=== PATIENT | female | born 1965 ===

== ENCOUNTER 2017-02-09 08:58 | Emergency (ER) | payer SELFPAY ==
[2017-02-09 09:07] VITALS: RESP 16; TEMP 98.1; O2SAT 100
[2017-02-09 09:08] VITALS: BMI 31.6
--- NOTE | 2017-02-09 10:08 | ED PDOC ---
HPI: Female Pain Time Seen by Provider: 02/09/17 09:09 Chief Complaint (Nursing): Female Genitourinary Chief Complaint (Provider): Female Genitourinary History Per: Patient History/Exam Limitations: no limitations Onset/Duration Of Symptoms: Days Current Symptoms Are (Timing): Still Present Additional Complaint(s): 51 y/o female with a past medical history of hypertension who presents to the emergency department with prolonged menstrual period since 01/30/2017. Reports using up to 5 pads a day. States she was admitted within our facility in the past for hypertension and vaginal bleeding, completed ultrasounds with no significant results, and prescribed pills to stop the bleeding. Patient decided to came to the emergency department because [facility] appointment was made with Dr. Solis ([facility]) for March 08, 2017. Denies abdominal pain. Past Medical History Reviewed: Historical Data, Nursing Documentation, Vital Signs Vital Signs: Last Vital Signs Temp 98.1 F 02/09/17 09:06 Pulse 106 H 02/09/17 09:06 Resp 16 02/09/17 09:06 BP 158/87 H 02/09/17 09:06 Pulse Ox 100 02/09/17 09:06 - Medical History PMH: Anemia, HTN Denies: Chronic Kidney Disease - Surgical History Surgical History: - Family History Family History: States: Unknown Family Hx - Social History Current smoker - smoking cessation education provided: No Alcohol: None Drugs: Denies - Immunization History Hx Influenza Vaccination: Yes (not up to date) - Home Medications Home Medications: Ambulatory Orders Medication Instructions Recorded Ferrous Sulfate [Feosol] 325 mg PO BID #60 tab 08/16/14 amLODIPine [Norvasc] 5 mg PO DAILY #0 tab 08/16/14 Ferrous Sulfate [Feosol] 325 mg PO DAILY #30 tab 07/24/15 Naproxen [Naprosyn] 500 mg PO Q12H #20 tab 07/24/15 MedroxyPROGESTERone [Provera] 10 mg PO DAILY #10 tab 02/09/17 - Allergies Allergies/Adverse Reactions: Allergies Allergy/AdvReac Type Severity Reaction Status Date / Time No Known Allergies Allergy Verified 07/24/15 08:26 Review of Systems ROS Statement: Except As Marked, All Systems Reviewed And Found Negative Gastrointestinal: Negative for: Abdominal Pain Genitourinary Female: Positive for: Vaginal Bleeding Physical Exam - Reviewed Nursing Documentation Reviewed: Yes Vital Signs Reviewed: Yes - Physical Exam Appears: Positive for: Non-toxic, No Acute Distress Head Exam: Positive for: ATRAUMATIC, NORMAL INSPECTION, NORMOCEPHALIC Skin: Positive for: Normal Color, Warm, Dry Cardiovascular/Chest: Positive for: Regular Rate, Rhythm. Negative for: Murmur Respiratory: Positive for: Normal Breath Sounds. Negative for: Accessory Muscle Use, Respiratory Distress Gastrointestinal/Abdominal: Positive for: Normal Exam, Soft. Negative for: Tenderness Pelvic Exam: Positive for: Blood (Minimal dark blood involved). Negative for: Other (No other abnormalities ) Neurologic/Psych: Positive for: Alert, Oriented (x3) - Laboratory Results Result Diagrams: 02/09/17 10:00 02/09/17 10:00 - ECG O2 Sat by Pulse Oximetry: 100 (RA) Pulse Ox Interpretation: Normal - Physician Consult Information Physician Contacted: Grant Horton Outcome Of Conversation: Recommends Provera 10 mg qd X 10 days. Medical Decision Making Medical Decision Making: Time: 09:55 Initial Impression: Prolonged menstrual period Initial Plan: --Type and Screen --CMP --Urine Preg --CBC w/ diff --PTT & Prothrombin --Pelvis/Transvag US --Reevaluation Time: 1029 --Crossmatch --Type and Screen --Administer Blood products Time: 1259 --US FINDINGS: UTERUS: Measures 12.3 x 5.9 x 5.1 cm. There is grossly normal uterine echogenicity appreciated. There is a small posterior uterine fibroid noted measuring 1.3 x 1.3 x 1.5 centimeters. ENDOMETRIUM: Measures 20 mm in diameter. Endometrial complex is thickened with areas of increased vascularity identified. This will require further clinical follow up in a patient of this age. No appreciable focal endometrial complex mass. CERVIX: No cervical abnormality identified. RIGHT OVARY: Measures 2.2 x 2.1 x 1.6 cm. No solid mass. Normal flow. Right ovary is only well seen transabdominally. LEFT OVARY: Measures 4.4 x 3.2 x 2.6 cm. There is a 2.8 x 4.2 x 2.6 left ovarian hypoechoic simple cyst occupying a large portion of the right ovary. Normal flow. FREE FLUID: No significant free fluid noted. OTHER FINDINGS: None. IMPRESSION: Thickened endometrial complex with areas of increased vascularity. No focal endometrial complex mass. This may reflect hyperplasia but will require further clinical follow-up. In addition there is a hypoechoic simple appearing left ovarian cyst. Follow-up ultrasound of this would also be suggested. Time: 1310 --Patient is signing against medical advice (AMA) after refusing IV transfusion. --Counseling was provided to patient that signing out AMA before physician determines diagnosis or recommends discharge is considered high-risk especially with symptoms patient presented to the emergency room with. --Patient is medically stable and will sign out AMA. --Rx for Provera 10 mg was prescribed and advised to follow up with Dr. Joana Solis MD. Clinical Impression: DUB (Dysfunctional uterine bleeding) Scribe Attestation: Documented by Jasmine Hernandes, acting as a scribe for Shira Phan MD. Provider Scribe Attestation: All medical record entries made by the Scribe were at my direction and personally dictated by me. I have reviewed the chart and agree that the record accurately reflects my personal performance of the history, physical exam, medical decision making, and the department course for this patient. I have also personally directed, reviewed, and agree with the discharge instructions and disposition. Disposition - Clinical Impression Clinical Impression: DUB (dysfunctional uterine bleeding) - Disposition Referrals: Joana Solis MD [Staff Provider] - Disposition: Against Medical Advice Disposition Time: 13:10 Condition: STABLE Prescriptions: MedroxyPROGESTERone [Provera] 10 mg PO DAILY #10 tab Instructions: Dysfunctional Uterine Bleeding (ED) Forms: [employer] (Azeri) Print Language: MAURITIAN
[2017-02-09 10:14] LABS: BASO # 0.1 K/uL (0.0-0.2); BASO % 1.4 % (0.0-2.0); EOS # 0.1 K/uL (0.0-0.7); EOS % 1.2 % (0.0-4.0); LYMPH # 1.1 K/uL (1.0-4.3); LYMPH % 25.4 % (20.0-40.0); MEAN CELL VOLUME 62.4 fl (81.0-99.0); MEAN CORPUSCULAR HEMOGLOBIN 17.3 pg (27.0-31.0); MEAN CORPUSCULAR HGB CONC 27.8 g/dL (33.0-37.0); MEAN PLATELET VOLUME 8.5 fl (7.2-11.7); MONO # 0.3 K/uL (0.0-0.8); MONO % 6.8 % (0.0-10.0); NEUT # 2.9 K/uL (1.8-7.0); NEUT % 65.2 % (50.0-75.0); RED CELL DISTRIBUTION WIDTH 24.5 % (11.5-14.5); WHITE BLOOD COUNT 4.5 K/uL (4.8-10.8)
[2017-02-09 10:22] LABS: ALB/GLOB RATIO 1.3 (1.0-2.1); ALKALINE PHOSPHATASE 95 U/L (38-126); ALT/SGPT 29 U/L (9-52); AST/SGOT 33 U/L (14-36); BILIRUBIN,TOTAL 0.1 mg/dl (0.2-1.3); BLOOD UREA NITROGEN 16 mg/dl (7-17); CALCIUM 9.7 mg/dL (8.4-10.2); CARBON DIOXIDE 22 mmol/L (22-30); CHLORIDE 106 mmol/L (98-107); GFR AFRICAN-AMERICAN > 60; GLUCOSE,RANDOM 116 mg/dL (65-105); POTASSIUM 3.8 MMOL/L (3.6-5.0); SODIUM 141 mmol/l (132-148); TOTAL PROTEIN 7.5 G/DL (6.3-8.2)
[2017-02-09 10:27] LABS: PARTIAL THROMBOPLASTIN TIME 23.1 Seconds (25.6-37.1)
--- NOTE | 2017-02-09 13:00 | US ---
HISTORY: Irregular vag bleeding COMPARISON: December 02, 2015 TECHNIQUE: Real-time transabdominal and transvaginal ultrasound examination of the pelvis was performed. FINDINGS: UTERUS: Measures 12.3 x 5.9 x 5.1 cm. There is grossly normal uterine echogenicity appreciated. There is a small posterior uterine fibroid noted measuring 1.3 x 1.3 x 1.5 centimeters. ENDOMETRIUM: Measures 20 mm in diameter. Endometrial complex is thickened with areas of increased vascularity identified. This will require further clinical follow up in a patient of this age. No appreciable focal endometrial complex mass. CERVIX: No cervical abnormality identified. RIGHT OVARY: Measures 2.2 x 2.1 x 1.6 cm. No solid mass. Normal flow. Right ovary is only well seen transabdominally. LEFT OVARY: Measures 4.4 x 3.2 x 2.6 cm. There is a 2.8 x 4.2 x 2.6 left ovarian hypoechoic simple cyst occupying a large portion of the right ovary. Normal flow. FREE FLUID: No significant free fluid noted. OTHER FINDINGS: None. IMPRESSION: Thickened endometrial complex with areas of increased vascularity. No focal endometrial complex mass. This may reflect hyperplasia but will require further clinical follow-up. In addition there is a hypoechoic simple appearing left ovarian cyst. Follow-up ultrasound of this would also be suggested.
[2017-02-09 13:37] VITALS: BP 140/87; PULSE 90
== END 2017-02-09 13:37 | disposition left against medical advice (07) ==
LOC: H.ER 08:58
DX: N93.8 Other specified abnormal uterine and vaginal bleeding (principal); D25.9 Leiomyoma of uterus, unspecified

== ENCOUNTER 2017-02-25 16:21 | Inpatient (IN) | payer SELFPAY ==
[2017-02-25 16:21] VITALS: BMI 31.6
[2017-02-25] MEDS ORDERED: Sodium Chloride 0.9% 1,000 ML IV STA (16:34)
--- NOTE | 2017-02-25 16:38 | ED PDOC ---
HPI: Female Pain Time Seen by Provider: 02/25/17 16:26 Chief Complaint (Nursing): Abnormal Labs Chief Complaint (Provider): Vaginal bleeding History Per: Patient History/Exam Limitations: no limitations Onset/Duration Of Symptoms: Days (xSeveral months) Current Symptoms Are (Timing): Still Present Additional Complaint(s): Siena Saxena is a 51 year old female with a past medical history of anemia and hypertension who presents to the ED complaining of vaginal bleeding ongoing for several months. Patient was seen here on 02/09/17 at which time her hemoglobin was 6.1, and ultrasound showed thickened endometrial complex with no mass. She refused blood transfusion and left against medical advice at that time. Denies any dizziness, nausea, vomiting, diarrhea, weakness , numbness, headache, chest pain or shortness of breath. Patient was seen at the clinic earlier today and referred to the ED due to low hemoglobin. PMD: Raffy Gregory MD Past Medical History Reviewed: Historical Data, Nursing Documentation, Vital Signs Vital Signs: Last Vital Signs Temp 98.0 F 02/25/17 16:24 Pulse 107 H 02/25/17 16:24 Resp 16 02/25/17 16:24 BP 155/88 H 02/25/17 16:24 Pulse Ox 100 02/25/17 16:24 - Medical History PMH: Anemia, HTN Denies: Chronic Kidney Disease - Surgical History Surgical History: - Family History Family History: States: Unknown Family Hx - Social History Current smoker - smoking cessation education provided: No Alcohol: None Drugs: Denies - Immunization History Hx Influenza Vaccination: Yes (not up to date) - Home Medications Home Medications: Ambulatory Orders Medication Instructions Recorded Ferrous Sulfate [Feosol] 325 mg PO BID #60 tab 08/16/14 amLODIPine [Norvasc] 5 mg PO DAILY #0 tab 08/16/14 Ferrous Sulfate [Feosol] 325 mg PO DAILY #30 tab 07/24/15 Naproxen [Naprosyn] 500 mg PO Q12H #20 tab 07/24/15 MedroxyPROGESTERone [Provera] 10 mg PO DAILY #10 tab 02/09/17 - Allergies Allergies/Adverse Reactions: Allergies Allergy/AdvReac Type Severity Reaction Status Date / Time No Known Allergies Allergy Verified 02/25/17 16:24 Review of Systems Constitutional: Negative for: Fever, Chills Cardiovascular: Negative for: Chest Pain Respiratory: Negative for: Shortness of Breath Gastrointestinal: Negative for: Nausea, Vomiting, Diarrhea Genitourinary Female: Positive for: Vaginal Bleeding Musculoskeletal: Negative for: Back Pain, Leg Pain Neurological: Negative for: Weakness, Numbness, Headache, Dizziness Physical Exam - Reviewed Nursing Documentation Reviewed: Yes Vital Signs Reviewed: Yes - Physical Exam Appears: Positive for: Uncomfortable Head Exam: Positive for: ATRAUMATIC, NORMAL INSPECTION, NORMOCEPHALIC Skin: Positive for: Normal Color, Warm, Dry Eye Exam: Positive for: Normal appearance (Right eye), EOMI, PERRL, Other ( Patient cannot see out of left eye due to prior injury) ENT: Positive for: Normal ENT Inspection. Negative for: Nasal Congestion, Pharyngeal Erythema Neck: Positive for: Normal, Painless ROM, Supple Cardiovascular/Chest: Positive for: Regular Rate, Rhythm. Negative for: Murmur Respiratory: Positive for: Normal Breath Sounds. Negative for: Respiratory Distress Gastrointestinal/Abdominal: Positive for: Normal Exam, Bowel Sounds, Soft. Negative for: Tenderness Back: Positive for: Normal Inspection. Negative for: L CVA Tenderness, R CVA Tenderness, Vertebral Tenderness Extremity: Positive for: Normal ROM. Negative for: Pedal Edema, Deformity Neurologic/Psych: Positive for: Alert, Oriented. Negative for: Motor/Sensory Deficits - Laboratory Results Result Diagrams: 02/25/17 17:17 02/25/17 17:06 Interpretation Of Abn Labs: 4.6 hg - ECG ECG: Positive for: Interpreted By Me, Viewed By Me ECG Rhythm: Positive for: Normal QRS, Normal ST Segment, Sinus Rhythm O2 Sat by Pulse Oximetry: 100 (RA) Pulse Ox Interpretation: Normal - Progress ED Course And Treament: 1754: Stable. AAOx3. Pain free. Will need admit for transfusion. Hg lower in [address] Bustamante and Dr. Decker. Will admit ICU. OBGYN saw pt. last visit 2 weeks ago and put on oral hormone pills. - Critical Care Total Time (In Min): 30 Documented Critical Care: Time excludes all time spent performint seperately billable procedures Medical Decision Making Medical Decision Making: Reviewed US Abdomen/Pelvis/Transvag Taken 02/09 IMPRESSION: Thickened endometrial complex with areas of increased vascularity. No focal endometrial complex mass. This may reflect hyperplasia but will require further clinical follow-up. In addition there is a hypoechoic simple appearing left ovarian cyst. Follow-up ultrasound of this would also be suggested. Time: 16:33 Initial Plan: --ABO/RH Type --Packed Cells leukoreduced --Type and Screen --CMP --Troponin I --Urine --Urine drip --CBC --Partial thromboplastin time --Prothrombin time --Sodium Chloride 0.9% 1,000 ml IV --Administer blood products --Pending reevaluation Scribe Attestation: Documented by Kraig Arce, acting as a scribe for Vicente Suazo MD Provider Scribe Attestation: All medical record entries made by the Scribe were at my direction and personally dictated by me. I have reviewed the chart and agree that the record accurately reflects my personal performance of the history, physical exam, medical decision making, and the department course for this patient. I have also personally directed, reviewed, and agree with the discharge instructions and disposition. Disposition - Clinical Impression Clinical Impression: Vaginal bleeding, Anemia - Patient ED Disposition Is Patient to be Admitted: Yes Counseled Patient/Family Regarding: Studies Performed, Diagnosis - Disposition Disposition Time: 17:55 Condition: FAIR - Pt Status Changed To: Hospital Disposition Of: Inpatient - Admit Certification Admit to Inpatient:: After my assessment, the patient will require hospitalization for at least two midnights. This is because of the severity of symptoms shown, intensity of services needed, and/or the medical risk in this patient being treated as an outpatient. - POA Present On Arrival: None
[2017-02-25 17:31] LABS: BASO # 0.1 K/uL (0.0-0.2); BASO % 0.9 % (0.0-2.0); EOS % 0.1 % (0.0-4.0); HEMATOCRIT 15.6 % (34.0-47.0); LYMPH # 1.4 K/uL (1.0-4.3); LYMPH % 14.4 % (20.0-40.0); MEAN CELL VOLUME 60.3 fl (81.0-99.0); MEAN CORPUSCULAR HEMOGLOBIN 17.8 pg (27.0-31.0); MEAN CORPUSCULAR HGB CONC 29.6 g/dL (33.0-37.0); MEAN PLATELET VOLUME 8.8 fl (7.2-11.7); MONO # 0.7 K/uL (0.0-0.8); MONO % 7.4 % (0.0-10.0); NEUT # 7.7 K/uL (1.8-7.0); NEUT % 77.2 % (50.0-75.0); NRBC % 1.8 % (0.0-0.0); RED CELL DISTRIBUTION WIDTH 23.7 % (11.5-14.5)
[2017-02-25 17:37] LABS: ALB/GLOB RATIO 1.3 (1.0-2.1); ALKALINE PHOSPHATASE 93 U/L (38-126); ALT/SGPT 30 U/L (9-52); AST/SGOT 29 U/L (14-36); BILIRUBIN,TOTAL 0.2 mg/dl (0.2-1.3); BLOOD UREA NITROGEN 11 mg/dl (7-17); CALCIUM 9.7 mg/dL (8.4-10.2); CARBON DIOXIDE 22 mmol/L (22-30); CHLORIDE 103 mmol/L (98-107); GFR AFRICAN-AMERICAN > 60; GLUCOSE,RANDOM 120 mg/dL (65-105); POTASSIUM 3.8 MMOL/L (3.6-5.0); SODIUM 136 mmol/l (132-148); TOTAL PROTEIN 7.5 G/DL (6.3-8.2)
[2017-02-25 18:10] LABS: PARTIAL THROMBOPLASTIN TIME 22.6 Seconds (25.6-37.1)
--- NOTE | 2017-02-25 18:31 | CP.PCM.HP ---
History of Present Illness - History of Present Illness History of Present Illness: 51yo F with PMHx HTN, chronic anemia admitted for anemia. LMP 01/29/17, heavy menstrual bleeding, 5-6 pads daily, has been occuring x3 years, previously 3-4 pads daily. Has tried provera recently, last taken 1-2 weeks ago, completed provera daily x1 week and bleeding decreased shortly afterwards, but increased after provera was completed. Denies PMHx/FHx fibroid, cervical/ovarian/breast cancer. 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 - Present on Admission Any Indicators Present on Admission: No Review of Systems - Review of Systems All systems: reviewed and no additional remarkable complaints except - Reproductive: Female Reproductive:Female: Heavy Menses Past Patient History - Infectious Disease Hx of Infectious Diseases: None - Tetanus Immunizations Tetanus Immunization: Unknown - Past Medical History & Family History Past Medical History?: No - Past Social History Alcohol: None Drugs: Denies - CARDIAC Hx Hypertension: Yes - PULMONARY Hx Respiratory Disorders: No - NEUROLOGICAL Hx Neurological Disorder: No - HEENT Other/Comment: BLIND LEFT EYE. 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) - GASTROINTESTINAL Hx Gastrointestinal Disorders: No - GENITOURINARY/GYNECOLOGICAL Hx Genitourinary Disorders: Yes (Vaginal Bleeding) - PSYCHIATRIC Hx Psychophysiologic Disorder: No Hx Substance Use: No - SURGICAL HISTORY Hx Section: Yes - ANESTHESIA Hx Anesthesia: Yes Hx Anesthesia Reactions: No Hx Malignant Hyperthermia: No Meds Allergies/Adverse Reactions: Allergies Allergy/AdvReac Type Severity Reaction Status Date / Time No Known Allergies Allergy Verified 02/25/17 16:24 Physical Exam - Constitutional Appears: Non-toxic, No Acute Distress - Head Exam Head Exam: ATRAUMATIC, NORMOCEPHALIC - Eye Exam Eye Exam: Normal appearance - ENT Exam ENT Exam: Mucous Membranes Moist - Neck Exam Neck exam: Positive for: Full Rom, Normal Inspection - Respiratory Exam Respiratory Exam: Clear to Auscultation Bilateral, NORMAL BREATHING PATTERN. absent: Wheezes - Cardiovascular Exam Cardiovascular Exam: REGULAR RHYTHM. absent: Systolic Murmur - GI/Abdominal Exam GI & Abdominal Exam: Normal Bowel Sounds. absent: Tenderness - Extremities Exam Extremities exam: Positive for: normal capillary refill, normal inspection. Negative for: pedal edema - Back Exam Back exam: NORMAL INSPECTION. absent: vertebral tenderness - Neurological Exam Neurological exam: Alert, Oriented x3 - Skin Skin Exam: Dry, Warm Results - Vital Signs Recent Vital Signs: Last Vital Signs Temp 98.0 F 02/25/17 16:24 Pulse 107 H 02/25/17 16:24 Resp 16 02/25/17 16:24 BP 155/88 H 02/25/17 16:24 Pulse Ox 100 02/25/17 17:56 - Labs Result Diagrams: 02/25/17 17:17 02/25/17 17:06 Labs: Laboratory Results - last 24 hr 02/25/17 02/25/17 02/25/17 17:06 17:06 17:17 WBC 10.0 D RBC 2.59 L Hgb 4.6 L* Hct 15.6 L MCV 60.3 L D MCH 17.8 L MCHC 29.6 L RDW 23.7 H Plt Count 284 MPV 8.8 Neut % (Auto) 77.2 H Lymph % (Auto) 14.4 L [place] % (Auto) 7.4 Eos % (Auto) 0.1 Baso % (Auto) 0.9 Neut # 7.7 H Lymph # 1.4 Sol[place] # 0.7 Eos # 0.0 Baso # 0.1 PT INR APTT Sodium 136 Potassium 3.8 Chloride 103 Carbon Dioxide 22 Anion Gap 15 BUN 11 Creatinine 0.6 L Est GFR ( Amer) > 60 Est GFR (Non-Af Amer) > 60 Random Glucose 120 H Calcium 9.7 Total Bilirubin 0.2 AST 29 ALT 30 Alkaline Phosphatase 93 Troponin I < 0.0120 Total Protein 7.5 Albumin 4.3 Globulin 3.3 Albumin/Globulin Ratio 1.3 Blood Type O POSITIVE Antibody Screen Negative Crossmatch See Detail BBK History Checked Patient has bt 02/25/17 17:17 WBC RBC Hgb Hct MCV MCH MCHC RDW Plt Count MPV Neut % (Auto) Lymph % (Auto) Sol[place] % (Auto) Eos % (Auto) Baso % (Auto) Neut # Lymph # Sol[place] # Eos # Baso # PT 12.4 INR 1.1 APTT 22.6 L Sodium Potassium Chloride Carbon Dioxide Anion Gap BUN Creatinine Est GFR ( Amer) Est GFR (Non-Af Amer) Random Glucose Calcium Total Bilirubin AST ALT Alkaline Phosphatase Troponin I Total Protein Albumin Globulin Albumin/Globulin Ratio Blood Type Antibody Screen Crossmatch BBK History Checked Assessment & Plan - Assessment and Plan (Free Text) Assessment: 51yo F with PMHx HTN, chronic anemia admitted for anemia. 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 This is because of the severity of symptoms shown, intensity of services needed, and/or the medical risk in this patient being treated as an outpatient. - . Bed Request Type: Intensive Care Admitting Physician: Deborah Dillon
[2017-02-25 21:55] LABS: MAGNESIUM 2.2 MG/DL (1.6-2.3); PHOSPHOROUS 2.7 mg/dl (2.5-4.5)
[2017-02-25] MEDS ORDERED: Chlorhexidine Gluconate 1 APPL/PKT TP ONE (22:31)
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
[2017-02-26 00:13] VITALS: O2SAT 100
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
[2017-02-26 05:42] LABS: HEMATOCRIT 21.3 % (34.0-47.0); MEAN CELL VOLUME 67.2 fl (81.0-99.0); MEAN CORPUSCULAR HEMOGLOBIN 21.2 pg (27.0-31.0); MEAN CORPUSCULAR HGB CONC 31.6 g/dL (33.0-37.0); RED CELL DISTRIBUTION WIDTH 27.3 % (11.5-14.5); WHITE BLOOD COUNT 8.4 K/uL (4.8-10.8)
[2017-02-26 05:50] LABS: ALB/GLOB RATIO 1.3 (1.0-2.1); ALKALINE PHOSPHATASE 87 U/L (38-126); ALT/SGPT 30 U/L (9-52); AST/SGOT 27 U/L (14-36); BILIRUBIN,TOTAL 0.6 mg/dl (0.2-1.3); BLOOD UREA NITROGEN 11 mg/dl (7-17); CALCIUM 9.4 mg/dL (8.4-10.2); CARBON DIOXIDE 23 mmol/L (22-30); CHLORIDE 109 mmol/L (98-107); GFR AFRICAN-AMERICAN > 60; GLUCOSE,RANDOM 105 mg/dL (65-105); MAGNESIUM 2.2 MG/DL (1.6-2.3); POTASSIUM 4.3 MMOL/L (3.6-5.0); SODIUM 139 mmol/l (132-148); TOTAL PROTEIN 6.6 G/DL (6.3-8.2)
--- NOTE | 2017-02-26 08:28 | CP.PCM.PN ---
Subjective - Date & Time of Evaluation Date of Evaluation: 02/26/17 Time of Evaluation: 08:13 - Subjective Subjective: 51 y/o female seen and evaluated at bedside this morning. Patient is resting comfortably in her bed and denies of any acute overnight events. Patient is AAOx3 and in NAD. Patient states that she is feeling a lot better since she came in to the ED yesterday. Patient state that she is still bleeding from the vagina little bit but denies of any clots. Patient denies of having hx of bleeding disorder or any family history of cancer in the family. Patient reports that she has been 4 time and she has had 3 normal vaginal delivery and one . Patient denied of any complications with her previous delivery. Patient states that her last period was on 01/30 and reports that her periods last for about 3 weeks at a time. Patient states that she has monthly regular periods and has to have 3-4 pads changes daily while on her period. Patient states that she was given provera on her last visit to the ED which helped her with the bleeding a little bit. Patient denied of following up with an PRACTICE PHYSICIAN in the past. Patient denies of any recent F/N/V/C/shortness of breath/chest pain/headache/dizziness. Patient denies of any other complains at this time. Objective - Vital Signs/Intake and Output Vital Signs (last 24 hours): Temp Pulse Resp BP Pulse Ox 98.8 F 79 20 124/65 100 02/26/17 04:00 02/26/17 06:00 02/26/17 06:00 02/26/17 06:00 02/26/17 06:00 Intake and Output: 02/26/17 02/26/17 06:59 18:59 Intake Total 890 Output Total 900 Balance -10 - Medications Medications: Current Medications Acetaminophen (Tylenol 325mg Tab) 650 mg PO Q6 PRN PRN Reason: Pain, Mild (1-3) Last Admin: 02/25/17 19:59 Dose: 650 mg Amlodipine Besylate (Norvasc) 5 mg PO DAILY [facility] Cyanocobalamin (Vitamin B12 1000 Mcg/Ml Inj) 1,000 mcg IM DAILY [facility] Iron Sucrose 200 mg/ Sodium (Chloride) 110 mls @ 110 mls/hr IVPB DAILY [facility] Metoprolol Succinate (Toprol Xl) 25 mg PO DAILY [facility] Multivit/Folic Acid/Iron () 1 tab PO DAILY [facility] - Labs Labs: 02/26/17 04:20 02/26/17 04:20 PT 12.4 Seconds (9.8-13.1) 02/25/17 17:17 INR 1.1 (0.9-1.2) 02/25/17 17:17 APTT 22.6 Seconds (25.6-37.1) L 02/25/17 17:17 - Constitutional Appears: Well, Non-toxic, No Acute Distress - Head Exam Head Exam: NORMAL INSPECTION - Eye Exam Eye Exam: Normal appearance - ENT Exam ENT Exam: Mucous Membranes Moist, Normal Exam - Neck Exam Neck Exam: Full ROM, Normal Inspection - Respiratory Exam Respiratory Exam: Clear to Ausculation Bilateral, NORMAL BREATHING PATTERN. absent: Rales, Rhonchi, Wheezes, Respiratory Distress - Cardiovascular Exam Cardiovascular Exam: Tachycardia, REGULAR RHYTHM, +S1, +S2. absent: Diastolic murmur, Murmur - GI/Abdominal Exam GI & Abdominal Exam: Soft, Normal Bowel Sounds. absent: Tenderness, Diminished Bowel Sounds, Hyperactive Bowel Sounds - Rectal Exam Rectal Exam: Deferred - Extremities Exam Extremities Exam: Full ROM, Normal Inspection. absent: Calf Tenderness, Joint Swelling, Pedal Edema, Tenderness - Back Exam Back Exam: Full ROM, NORMAL INSPECTION. absent: tenderness - Neurological Exam Neurological Exam: Alert, Awake, Oriented x3 - Psychiatric Exam Psychiatric exam: Normal Affect, Normal Mood - Skin Skin Exam: Intact, Normal Color, Warm Assessment and Plan - Assessment and Plan (Free Text) Assessment: 51 y/o female with PMHx HTN, chronic anemia admitted for symptomatic anemia and active vaginal bleeding Plan: 1). Anemia - Pelvis US (02/12): Thickened endometrial complex with areas of increased vascularity. No focal endometrial complex mass. Reflects hyperplasia. Simple appearing left ovarian cyst noted which requires a follow up US - Pelvis US (12/12): Endometrium measures 5 mm in diameter. Unremarkable. Mildly enlarged uterus - Received 2 units of pRBC overnight - H&H 4.6/15.6 on admission to 6.7/21.3 this morning - transfuse 2 more units of pRBC, IV venofer - Blood workup - Iron, TIBC, vWF, FSH, LH, prolactin ordered - Monitor labs - cont cardiac monitoring - PRACTICE PHYSICIAN on board, input appreciated - F/u US to measure endometrial stripe, appointment in [facility] clinic for endometrial biopsy. If biopsy is benign, recommend Mirena IUD 2). HTN - Amlodipine 5 mg PO qd - Metoprolol 25 mg PO qd 3). Tachycardia - EKG normal sinus tachycardia - Metoprolol 4). DVT ppx - SCDs - no pharmalogical agents given anemia
[2017-02-26] MEDS: Metoprolol Succinate 25 mg XL Tab PO SCH (08:47)
[2017-02-26] MEDS: Prenatal Multivit/Folic Acid/Iron Tab PO SCH (08:48)
--- NOTE | 2017-02-26 09:54 | CP.CCUPN ---
<Harrison Chaidez - Last Filed: 02/26/17 11:49> CCU Subjective - Physician Review Subjective (Free Text): 02/26/17 09:48 Patient seen and examined at bedside this morning. Patient NAD and laying in bed comfortably. Patient states that vaginal bleed has decreased and reports no other bleeding, denies hemoptysis, hematuria, hematochezia, or melena. Patient tolerating PO and voiding freely. Patient complains only of right foot pain w/ movement. Patient denies headaches, chest pain, SOB, abdominal pain, nausea, vomiting, or fever. Critical Care Time Spent (in minutes): 35 CCU Objective - Vital Signs / Intake & Output Vital Signs (Last 4 hours): Vital Signs Temp Pulse Resp BP Pulse Ox 02/26/17 08:48 98 H 150/65 02/26/17 08:47 98 H 150/65 02/26/17 08:00 99.2 F 82 18 131/82 100 02/26/17 06:00 79 20 124/65 100 Intake and Output (Last 8hrs): Intake & Output 02/25/17 02/26/17 02/26/17 22:59 06:59 14:59 Intake Total 890 Output Total 900 Balance -10 Weight 169 lb Intake: Oral 240 Blood Product 650 Output: Urine 900 Urine, Voided 900 Other: # Voids Urine, Voided 1 - Physical Exam Head: Positive for: Atraumatic, Normocephalic. Negative for: Tenderness Pupils: Positive for: PERRL (right eye normal, left eye damaged from previous injury) Extroacular Muscles: Positive for: EOMI Conjunctiva: Positive for: Normal Neck: Positive for: Normal Range of Motion Respiratory/Chest: Positive for: Clear to Auscultation, Good Air Exchange. Negative for: Respiratory Distress, Accessory Muscle Use, Wheezes, Decreased Breath Sounds, Rales, Rhonchi Cardiovascular: Positive for: Regular Rate and Rhythm, Normal S1, S2. Negative for: Murmurs, Tachycardic Abdomen: Positive for: Normal Bowel Sounds. Negative for: Tenderness, Distention, Peritoneal Signs Back: Positive for: Normal Inspection Upper Extremity: Negative for: Cyanosis, Edema, Tenderness Lower Extremity: Negative for: Edema, CALF TENDERNESS, Swelling Neurological: Positive for: GCS=15, CN II-XII Intact, Speech Normal Skin: Positive for: Warm, Dry, Pale Psychiatric: Positive for: Alert, Oriented x 3 - Medications Active Medications: Active Medications Generic Name Dose Route Start Last Admin Trade Name Stephanie PRN Reason Stop Dose Admin Acetaminophen 650 mg 02/25/17 19:46 02/25/17 19:59 Tylenol 325mg Tab PO 650 mg Q6 PRN Administration Pain, Mild (1-3) Amlodipine Besylate 5 mg 02/26/17 09:00 02/26/17 08:48 Norvasc PO 5 mg DAILY RALPH Administration Cyanocobalamin 1,000 mcg 02/26/17 09:00 02/26/17 08:48 Vitamin B12 1000 Mcg/Ml Inj IM 1,000 mcg DAILY RALPH Administration Iron Sucrose 200 mg/ Sodium 110 mls @ 110 mls/hr 02/26/17 09:00 02/26/17 08: 49 Chloride IVPB 110 mls/hr DAILY RALPH Administration Metoprolol Succinate 25 mg 02/26/17 09:00 02/26/17 08:47 Toprol Xl PO 25 mg DAILY RALPH Administration Multivit/Folic Acid/Iron 1 tab 02/26/17 09:00 02/26/17 08:48 PO 1 tab DAILY RALPH Administration - Patient Studies Lab Studies: Lab Studies 02/26/17 02/26/17 02/25/17 Range/Units 04:20 04:20 22:40 WBC 8.4 (4.8-10.8) K/uL RBC 3.17 L (3.80-5.20) Mil/uL Hgb 6.7 L D (12.0-16.0) g/dL Hct 21.3 L (34.0-47.0) % MCV 67.2 L D (81.0-99.0) fl MCH 21.2 L (27.0-31.0) pg MCHC 31.6 L (33.0-37.0) g/dL RDW 27.3 H (11.5-14.5) % Plt Count 243 (130-400) K/uL MPV (7.2-11.7) fl Neut % (Auto) (50.0-75.0) % Lymph % (Auto) (20.0-40.0) % Stewart % (Auto) (0.0-10.0) % Eos % (Auto) (0.0-4.0) % Baso % (Auto) (0.0-2.0) % Neut # (1.8-7.0) K/uL Lymph # (1.0-4.3) K/uL Stewart # (0.0-0.8) K/uL Eos # (0.0-0.7) K/uL Baso # (0.0-0.2) K/uL Retic Count 4.3 H D PT (9.8-13.1) Seconds INR (0.9-1.2) APTT (25.6-37.1) Seconds Sodium 139 (132-148) mmol/l Potassium 4.3 (3.6-5.0) MMOL/L Chloride 109 H (98-107) mmol/L Carbon Dioxide 23 (22-30) mmol/L Anion Gap 11 (10-20) BUN 11 (7-17) mg/dl Creatinine 0.7 (0.7-1.2) mg/dL Est GFR ( Amer) > 60 Est GFR (Non-Af Amer) > 60 Random Glucose 105 (65-105) mg/dL Calcium 9.4 (8.4-10.2) mg/dL Phosphorus 3.0 (2.5-4.5) mg/dl Magnesium 2.2 (1.6-2.3) MG/DL Total Bilirubin 0.6 (0.2-1.3) mg/dl AST 27 (14-36) U/L ALT 30 (9-52) U/L Alkaline Phosphatase 87 (38-126) U/L Lactate Dehydrogenase (313-618) U/L Troponin I (0.00-0.120) ng/mL Total Protein 6.6 (6.3-8.2) G/DL Albumin 3.7 (3.5-5.0) g/dL Globulin 2.9 (2.2-3.9) gm/dL Albumin/Globulin Ratio 1.3 (1.0-2.1) Blood Type Antibody Screen Crossmatch BBK History Checked 02/25/17 02/25/17 02/25/17 Range/Units 21:58 20:58 17:17 WBC (4.8-10.8) K/uL RBC (3.80-5.20) Mil/uL Hgb (12.0-16.0) g/dL Hct (34.0-47.0) % MCV (81.0-99.0) fl MCH (27.0-31.0) pg MCHC (33.0-37.0) g/dL RDW (11.5-14.5) % Plt Count (130-400) K/uL MPV (7.2-11.7) fl Neut % (Auto) (50.0-75.0) % Lymph % (Auto) (20.0-40.0) % Stewart % (Auto) (0.0-10.0) % Eos % (Auto) (0.0-4.0) % Baso % (Auto) (0.0-2.0) % Neut # (1.8-7.0) K/uL Lymph # (1.0-4.3) K/uL Stewart # (0.0-0.8) K/uL Eos # (0.0-0.7) K/uL Baso # (0.0-0.2) K/uL Retic Count Cancelled PT 12.4 (9.8-13.1) Seconds INR 1.1 (0.9-1.2) APTT 22.6 L (25.6-37.1) Seconds Sodium (132-148) mmol/l Potassium (3.6-5.0) MMOL/L Chloride (98-107) mmol/L Carbon Dioxide (22-30) mmol/L Anion Gap (10-20) BUN (7-17) mg/dl Creatinine (0.7-1.2) mg/dL Est GFR ( Amer) Est GFR (Non-Af Amer) Random Glucose (65-105) mg/dL Calcium (8.4-10.2) mg/dL Phosphorus 2.7 (2.5-4.5) mg/dl Magnesium 2.2 (1.6-2.3) MG/DL Total Bilirubin (0.2-1.3) mg/dl AST (14-36) U/L ALT (9-52) U/L Alkaline Phosphatase (38-126) U/L Lactate Dehydrogenase 302 L (313-618) U/L Troponin I (0.00-0.120) ng/mL Total Protein (6.3-8.2) G/DL Albumin (3.5-5.0) g/dL Globulin (2.2-3.9) gm/dL Albumin/Globulin Ratio (1.0-2.1) Blood Type Antibody Screen Crossmatch BBK History Checked 02/25/17 02/25/17 02/25/17 Range/Units 17:17 17:06 17:06 WBC 10.0 D (4.8-10.8) K/uL RBC 2.59 L (3.80-5.20) Mil/uL Hgb 4.6 L* (12.0-16.0) g/dL Hct 15.6 L (34.0-47.0) % MCV 60.3 L D (81.0-99.0) fl MCH 17.8 L (27.0-31.0) pg MCHC 29.6 L (33.0-37.0) g/dL RDW 23.7 H (11.5-14.5) % Plt Count 284 (130-400) K/uL MPV 8.8 (7.2-11.7) fl Neut % (Auto) 77.2 H (50.0-75.0) % Lymph % (Auto) 14.4 L (20.0-40.0) % Stewart % (Auto) 7.4 (0.0-10.0) % Eos % (Auto) 0.1 (0.0-4.0) % Baso % (Auto) 0.9 (0.0-2.0) % Neut # 7.7 H (1.8-7.0) K/uL Lymph # 1.4 (1.0-4.3) K/uL Stewart # 0.7 (0.0-0.8) K/uL Eos # 0.0 (0.0-0.7) K/uL Baso # 0.1 (0.0-0.2) K/uL Retic Count PT (9.8-13.1) Seconds INR (0.9-1.2) APTT (25.6-37.1) Seconds Sodium 136 (132-148) mmol/l Potassium 3.8 (3.6-5.0) MMOL/L Chloride 103 (98-107) mmol/L Carbon Dioxide 22 (22-30) mmol/L Anion Gap 15 (10-20) BUN 11 (7-17) mg/dl Creatinine 0.6 L (0.7-1.2) mg/dL Est GFR ( Amer) > 60 Est GFR (Non-Af Amer) > 60 Random Glucose 120 H (65-105) mg/dL Calcium 9.7 (8.4-10.2) mg/dL Phosphorus (2.5-4.5) mg/dl Magnesium (1.6-2.3) MG/DL Total Bilirubin 0.2 (0.2-1.3) mg/dl AST 29 (14-36) U/L ALT 30 (9-52) U/L Alkaline Phosphatase 93 (38-126) U/L Lactate Dehydrogenase (313-618) U/L Troponin I < 0.0120 (0.00-0.120) ng/mL Total Protein 7.5 (6.3-8.2) G/DL Albumin 4.3 (3.5-5.0) g/dL Globulin 3.3 (2.2-3.9) gm/dL Albumin/Globulin Ratio 1.3 (1.0-2.1) Blood Type O POSITIVE Antibody Screen Negative Crossmatch See Detail BBK History Checked Patient has bt Laboratory Results - last 24 hr 02/25/17 02/25/17 02/25/17 17:06 17:06 17:17 WBC 10.0 D RBC 2.59 L Hgb 4.6 L* Hct 15.6 L MCV 60.3 L D MCH 17.8 L MCHC 29.6 L RDW 23.7 H Plt Count 284 MPV 8.8 Neut % (Auto) 77.2 H Lymph % (Auto) 14.4 L Stewart % (Auto) 7.4 Eos % (Auto) 0.1 Baso % (Auto) 0.9 Neut # 7.7 H Lymph # 1.4 Stewart # 0.7 Eos # 0.0 Baso # 0.1 Retic Count PT INR APTT Sodium 136 Potassium 3.8 Chloride 103 Carbon Dioxide 22 Anion Gap 15 BUN 11 Creatinine 0.6 L Est GFR ( Amer) > 60 Est GFR (Non-Af Amer) > 60 Random Glucose 120 H Calcium 9.7 Phosphorus Magnesium Total Bilirubin 0.2 AST 29 ALT 30 Alkaline Phosphatase 93 Lactate Dehydrogenase Troponin I < 0.0120 Total Protein 7.5 Albumin 4.3 Globulin 3.3 Albumin/Globulin Ratio 1.3 Blood Type O POSITIVE Antibody Screen Negative Crossmatch See Detail BBK History Checked Patient has bt 02/25/17 02/25/17 02/25/17 17:17 20:58 21:58 WBC RBC Hgb Hct MCV MCH MCHC RDW Plt Count MPV Neut % (Auto) Lymph % (Auto) Stewart % (Auto) Eos % (Auto) Baso % (Auto) Neut # Lymph # Stewart # Eos # Baso # Retic Count Cancelled PT 12.4 INR 1.1 APTT 22.6 L Sodium Potassium Chloride Carbon Dioxide Anion Gap BUN Creatinine Est GFR ( Amer) Est GFR (Non-Af Amer) Random Glucose Calcium Phosphorus 2.7 Magnesium 2.2 Total Bilirubin AST ALT Alkaline Phosphatase Lactate Dehydrogenase 302 L Troponin I Total Protein Albumin Globulin Albumin/Globulin Ratio Blood Type Antibody Screen Crossmatch BBK History Checked 02/25/17 02/26/17 02/26/17 22:40 04:20 04:20 WBC 8.4 RBC 3.17 L Hgb 6.7 L D Hct 21.3 L MCV 67.2 L D MCH 21.2 L MCHC 31.6 L RDW 27.3 H Plt Count 243 MPV Neut % (Auto) Lymph % (Auto) Stewart % (Auto) Eos % (Auto) Baso % (Auto) Neut # Lymph # Stewart # Eos # Baso # Retic Count 4.3 H D PT INR APTT Sodium 139 Potassium 4.3 Chloride 109 H Carbon Dioxide 23 Anion Gap 11 BUN 11 Creatinine 0.7 Est GFR ( Amer) > 60 Est GFR (Non-Af Amer) > 60 Random Glucose 105 Calcium 9.4 Phosphorus 3.0 Magnesium 2.2 Total Bilirubin 0.6 AST 27 ALT 30 Alkaline Phosphatase 87 Lactate Dehydrogenase Troponin I Total Protein 6.6 Albumin 3.7 Globulin 2.9 Albumin/Globulin Ratio 1.3 Blood Type Antibody Screen Crossmatch BBK History Checked Review of Systems - Review of Systems All systems: reviewed and no additional remarkable complaints except - Constitutional Constitutional: absent: Fever, Chills - EENT Eyes: absent: Change in Vision - Cardiovascular Cardiovascular: absent: Chest Pain, Dyspnea, Edema, Leg Edema, Palpitations - Respiratory Respiratory: absent: Cough, Dyspnea, Hemoptysis, Wheezing, Stridor - Gastrointestinal Gastrointestinal: absent: Abdominal Pain, Diarrhea, Hematochezia, Melena, Nausea , Vomiting - Genitourinary Genitourinary: absent: Dysuria, Hematuria - Integumentary Integumentary: absent: Rash - Neurological Neurological: absent: Dizziness, Headaches, Syncope Critical Care Progress Note - Nutrition Nutrition: Nutrition Category Date Time Status Regular Diet [DIET] Diets 02/26/17 Breakfast Active Assessment/Plan - Assessment and Plan (Free Text) Assessment: 51 y/o woman w/ pmh of HTN and chronic anemia presented to ED w/ symptomatic anemia. Patient in ICU for active vaginal bleeding and symptomatic anemia w/ Hb of 4.6 Plan: Anemia secondary to abnormal uterine bleeding - presented to ED w/ tachycardia, hypotension, and dyspnea - admission Hb 4.6 - s/p 2 units PRBCs overnight - repeat CBC this AM, Hb 6.7 - currently asymptomatic and reports reduced vaginal bleed - Pelvis US (02/09/2017): Thickened endometrial complex with areas of increased vascularity. No focal endometrial complex mass. Reflects hyperplasia. Simple appearing left ovarian cyst noted which requires a follow up US - Pelvis US (12/02/15): Endometrium measures 5 mm in diameter. Unremarkable. Mildly enlarged uterus - transfuse 2 more units of pRBC - c/w IV venofer 200 mg IV @ 110mL/hr - c/w vitamin B12 1000 mcg IM daily - c/w multivitamin 1 tab PO daily - Follow up: Iron, TIBC, vWF, FSH, LH, prolactin - monitor vitals - [employer] consult, Dr. Bailon, recommendations appreciated - F/u US to measure endometrial stripe, appointment in [facility] for endometrial biopsy. If biopsy is benign, recommend Mirena IUD HTN - Amlodipine 5 mg PO daily - Metoprolol 25 mg PO daily - continue to monitor Prophylactic measures - SCDs - no pharmacological agents due to anemia Dispo: - stable transfer to [facility] <Srikanth Beltran - Last Filed: 02/26/17 14:09> CCU Objective - Vital Signs / Intake & Output Vital Signs (Last 4 hours): Vital Signs Temp Pulse Resp BP Pulse Ox 02/26/17 14:00 84 20 123/82 100 02/26/17 13:00 84 21 124/67 100 02/26/17 12:00 100.1 F H 87 42 H 132/77 100 Intake and Output (Last 8hrs): Intake & Output 02/25/17 02/26/17 02/26/17 22:59 06:59 14:59 Intake Total 890 880 Output Total 900 Balance -10 880 Weight 169 lb Intake: Intake, Piggyback 100 Oral 240 480 Blood Product 650 300 Output: Urine 900 Urine, Voided 900 Other: # Voids Urine, Voided 1 - Medications Active Medications: Active Medications Generic Name Dose Route Start Last Admin Trade Name Freq PRN Reason Stop Dose Admin Acetaminophen 650 mg 02/25/17 19:46 02/25/17 19:59 Tylenol 325mg Tab PO 650 mg Q6 PRN Administration Pain, Mild (1-3) Amlodipine Besylate 5 mg 02/26/17 09:00 02/26/17 08:48 Norvasc PO 5 mg DAILY RALPH Administration Cyanocobalamin 1,000 mcg 02/26/17 09:00 02/26/17 08:48 Vitamin B12 1000 Mcg/Ml Inj IM 1,000 mcg DAILY RALPH Administration Iron Sucrose 200 mg/ Sodium 110 mls @ 110 mls/hr 02/26/17 09:00 02/26/17 08: 49 Chloride IVPB 110 mls/hr DAILY RALPH Administration Metoprolol Succinate 25 mg 02/26/17 09:00 02/26/17 08:47 Toprol Xl PO 25 mg DAILY RALPH Administration Multivit/Folic Acid/Iron 1 tab 02/26/17 09:00 02/26/17 08:48 PO 1 tab DAILY RALPH Administration - Patient Studies Lab Studies: Lab Studies 02/26/17 02/26/17 02/26/17 Range/Units 08:30 04:20 04:20 WBC 8.4 (4.8-10.8) K/uL RBC 3.17 L (3.80-5.20) Mil/uL Hgb 6.7 L D (12.0-16.0) g/dL Hct 21.3 L (34.0-47.0) % MCV 67.2 L D (81.0-99.0) fl MCH 21.2 L (27.0-31.0) pg MCHC 31.6 L (33.0-37.0) g/dL RDW 27.3 H (11.5-14.5) % Plt Count 243 (130-400) K/uL MPV (7.2-11.7) fl Neut % (Auto) (50.0-75.0) % Lymph % (Auto) (20.0-40.0) % Stewart % (Auto) (0.0-10.0) % Eos % (Auto) (0.0-4.0) % Baso % (Auto) (0.0-2.0) % Neut # (1.8-7.0) K/uL Lymph # (1.0-4.3) K/uL Stewart # (0.0-0.8) K/uL Eos # (0.0-0.7) K/uL Baso # (0.0-0.2) K/uL Retic Count PT (9.8-13.1) Seconds INR (0.9-1.2) APTT (25.6-37.1) Seconds Sodium 139 (132-148) mmol/l Potassium 4.3 (3.6-5.0) MMOL/L Chloride 109 H (98-107) mmol/L Carbon Dioxide 23 (22-30) mmol/L Anion Gap 11 (10-20) BUN 11 (7-17) mg/dl Creatinine 0.7 (0.7-1.2) mg/dL Est GFR ( Amer) > 60 Est GFR (Non-Af Amer) > 60 Random Glucose 105 (65-105) mg/dL Calcium 9.4 (8.4-10.2) mg/dL Phosphorus 3.0 (2.5-4.5) mg/dl Magnesium 2.2 (1.6-2.3) MG/DL Iron 22 L (37-170) ug/dL TIBC 381 (250-450) ug/dL % Saturation 6 L (20-55) % Total Bilirubin 0.6 (0.2-1.3) mg/dl AST 27 (14-36) U/L ALT 30 (9-52) U/L Alkaline Phosphatase 87 (38-126) U/L Lactate Dehydrogenase (313-618) U/L Troponin I (0.00-0.120) ng/mL Total Protein 6.6 (6.3-8.2) G/DL Albumin 3.7 (3.5-5.0) g/dL Globulin 2.9 (2.2-3.9) gm/dL Albumin/Globulin Ratio 1.3 (1.0-2.1) Blood Type Antibody Screen Crossmatch BBK History Checked 02/25/17 02/25/17 02/25/17 Range/Units 22:40 21:58 20:58 WBC (4.8-10.8) K/uL RBC (3.80-5.20) Mil/uL Hgb (12.0-16.0) g/dL Hct (34.0-47.0) % MCV (81.0-99.0) fl MCH (27.0-31.0) pg MCHC (33.0-37.0) g/dL RDW (11.5-14.5) % Plt Count (130-400) K/uL MPV (7.2-11.7) fl Neut % (Auto) (50.0-75.0) % Lymph % (Auto) (20.0-40.0) % Stewart % (Auto) (0.0-10.0) % Eos % (Auto) (0.0-4.0) % Baso % (Auto) (0.0-2.0) % Neut # (1.8-7.0) K/uL Lymph # (1.0-4.3) K/uL Stewart # (0.0-0.8) K/uL Eos # (0.0-0.7) K/uL Baso # (0.0-0.2) K/uL Retic Count 4.3 H D Cancelled PT (9.8-13.1) Seconds INR (0.9-1.2) APTT (25.6-37.1) Seconds Sodium (132-148) mmol/l Potassium (3.6-5.0) MMOL/L Chloride (98-107) mmol/L Carbon Dioxide (22-30) mmol/L Anion Gap (10-20) BUN (7-17) mg/dl Creatinine (0.7-1.2) mg/dL Est GFR ( Amer) Est GFR (Non-Af Amer) Random Glucose (65-105) mg/dL Calcium (8.4-10.2) mg/dL Phosphorus 2.7 (2.5-4.5) mg/dl Magnesium 2.2 (1.6-2.3) MG/DL Iron (37-170) ug/dL TIBC (250-450) ug/dL % Saturation (20-55) % Total Bilirubin (0.2-1.3) mg/dl AST (14-36) U/L ALT (9-52) U/L Alkaline Phosphatase (38-126) U/L Lactate Dehydrogenase 302 L (313-618) U/L Troponin I (0.00-0.120) ng/mL Total Protein (6.3-8.2) G/DL Albumin (3.5-5.0) g/dL Globulin (2.2-3.9) gm/dL Albumin/Globulin Ratio (1.0-2.1) Blood Type Antibody Screen Crossmatch BBK History Checked 02/25/17 02/25/17 02/25/17 Range/Units 17:17 17:17 17:06 WBC 10.0 D (4.8-10.8) K/uL RBC 2.59 L (3.80-5.20) Mil/uL Hgb 4.6 L* (12.0-16.0) g/dL Hct 15.6 L (34.0-47.0) % MCV 60.3 L D (81.0-99.0) fl MCH 17.8 L (27.0-31.0) pg MCHC 29.6 L (33.0-37.0) g/dL RDW 23.7 H (11.5-14.5) % Plt Count 284 (130-400) K/uL MPV 8.8 (7.2-11.7) fl Neut % (Auto) 77.2 H (50.0-75.0) % Lymph % (Auto) 14.4 L (20.0-40.0) % Stewart % (Auto) 7.4 (0.0-10.0) % Eos % (Auto) 0.1 (0.0-4.0) % Baso % (Auto) 0.9 (0.0-2.0) % Neut # 7.7 H (1.8-7.0) K/uL Lymph # 1.4 (1.0-4.3) K/uL Stewart # 0.7 (0.0-0.8) K/uL Eos # 0.0 (0.0-0.7) K/uL Baso # 0.1 (0.0-0.2) K/uL Retic Count PT 12.4 (9.8-13.1) Seconds INR 1.1 (0.9-1.2) APTT 22.6 L (25.6-37.1) Seconds Sodium 136 (132-148) mmol/l Potassium 3.8 (3.6-5.0) MMOL/L Chloride 103 (98-107) mmol/L Carbon Dioxide 22 (22-30) mmol/L Anion Gap 15 (10-20) BUN 11 (7-17) mg/dl Creatinine 0.6 L (0.7-1.2) mg/dL Est GFR ( Amer) > 60 Est GFR (Non-Af Amer) > 60 Random Glucose 120 H (65-105) mg/dL Calcium 9.7 (8.4-10.2) mg/dL Phosphorus (2.5-4.5) mg/dl Magnesium (1.6-2.3) MG/DL Iron (37-170) ug/dL TIBC (250-450) ug/dL % Saturation (20-55) % Total Bilirubin 0.2 (0.2-1.3) mg/dl AST 29 (14-36) U/L ALT 30 (9-52) U/L Alkaline Phosphatase 93 (38-126) U/L Lactate Dehydrogenase (313-618) U/L Troponin I < 0.0120 (0.00-0.120) ng/mL Total Protein 7.5 (6.3-8.2) G/DL Albumin 4.3 (3.5-5.0) g/dL Globulin 3.3 (2.2-3.9) gm/dL Albumin/Globulin Ratio 1.3 (1.0-2.1) Blood Type Antibody Screen Crossmatch BBK History Checked 02/25/17 Range/Units 17:06 WBC (4.8-10.8) K/uL RBC (3.80-5.20) Mil/uL Hgb (12.0-16.0) g/dL Hct (34.0-47.0) % MCV (81.0-99.0) fl MCH (27.0-31.0) pg MCHC (33.0-37.0) g/dL RDW (11.5-14.5) % Plt Count (130-400) K/uL MPV (7.2-11.7) fl Neut % (Auto) (50.0-75.0) % Lymph % (Auto) (20.0-40.0) % Stewart % (Auto) (0.0-10.0) % Eos % (Auto) (0.0-4.0) % Baso % (Auto) (0.0-2.0) % Neut # (1.8-7.0) K/uL Lymph # (1.0-4.3) K/uL Stewart # (0.0-0.8) K/uL Eos # (0.0-0.7) K/uL Baso # (0.0-0.2) K/uL Retic Count PT (9.8-13.1) Seconds INR (0.9-1.2) APTT (25.6-37.1) Seconds Sodium (132-148) mmol/l Potassium (3.6-5.0) MMOL/L Chloride (98-107) mmol/L Carbon Dioxide (22-30) mmol/L Anion Gap (10-20) BUN (7-17) mg/dl Creatinine (0.7-1.2) mg/dL Est GFR ( Amer) Est GFR (Non-Af Amer) Random Glucose (65-105) mg/dL Calcium (8.4-10.2) mg/dL Phosphorus (2.5-4.5) mg/dl Magnesium (1.6-2.3) MG/DL Iron (37-170) ug/dL TIBC (250-450) ug/dL % Saturation (20-55) % Total Bilirubin (0.2-1.3) mg/dl AST (14-36) U/L ALT (9-52) U/L Alkaline Phosphatase (38-126) U/L Lactate Dehydrogenase (313-618) U/L Troponin I (0.00-0.120) ng/mL Total Protein (6.3-8.2) G/DL Albumin (3.5-5.0) g/dL Globulin (2.2-3.9) gm/dL Albumin/Globulin Ratio (1.0-2.1) Blood Type O POSITIVE Antibody Screen Negative Crossmatch See Detail BBK History Checked Patient has bt Laboratory Results - last 24 hr 02/25/17 02/25/17 02/25/17 17:06 17:06 17:17 WBC 10.0 D RBC 2.59 L Hgb 4.6 L* Hct 15.6 L MCV 60.3 L D MCH 17.8 L MCHC 29.6 L RDW 23.7 H Plt Count 284 MPV 8.8 Neut % (Auto) 77.2 H Lymph % (Auto) 14.4 L Stewart % (Auto) 7.4 Eos % (Auto) 0.1 Baso % (Auto) 0.9 Neut # 7.7 H Lymph # 1.4 Stewart # 0.7 Eos # 0.0 Baso # 0.1 Retic Count PT INR APTT Sodium 136 Potassium 3.8 Chloride 103 Carbon Dioxide 22 Anion Gap 15 BUN 11 Creatinine 0.6 L Est GFR ( Amer) > 60 Est GFR (Non-Af Amer) > 60 Random Glucose 120 H Calcium 9.7 Phosphorus Magnesium Iron TIBC % Saturation Total Bilirubin 0.2 AST 29 ALT 30 Alkaline Phosphatase 93 Lactate Dehydrogenase Troponin I < 0.0120 Total Protein 7.5 Albumin 4.3 Globulin 3.3 Albumin/Globulin Ratio 1.3 Blood Type O POSITIVE Antibody Screen Negative Crossmatch See Detail BBK History Checked Patient has bt 02/25/17 02/25/17 02/25/17 17:17 20:58 21:58 WBC RBC Hgb Hct MCV MCH MCHC RDW Plt Count MPV Neut % (Auto) Lymph % (Auto) Stewart % (Auto) Eos % (Auto) Baso % (Auto) Neut # Lymph # Stewart # Eos # Baso # Retic Count Cancelled PT 12.4 INR 1.1 APTT 22.6 L Sodium Potassium Chloride Carbon Dioxide Anion Gap BUN Creatinine Est GFR ( Amer) Est GFR (Non-Af Amer) Random Glucose Calcium Phosphorus 2.7 Magnesium 2.2 Iron TIBC % Saturation Total Bilirubin AST ALT Alkaline Phosphatase Lactate Dehydrogenase 302 L Troponin I Total Protein Albumin Globulin Albumin/Globulin Ratio Blood Type Antibody Screen Crossmatch BBK History Checked 02/25/17 02/26/17 02/26/17 22:40 04:20 04:20 WBC 8.4 RBC 3.17 L Hgb 6.7 L D Hct 21.3 L MCV 67.2 L D MCH 21.2 L MCHC 31.6 L RDW 27.3 H Plt Count 243 MPV Neut % (Auto) Lymph % (Auto) Stewart % (Auto) Eos % (Auto) Baso % (Auto) Neut # Lymph # Stewart # Eos # Baso # Retic Count 4.3 H D PT INR APTT Sodium 139 Potassium 4.3 Chloride 109 H Carbon Dioxide 23 Anion Gap 11 BUN 11 Creatinine 0.7 Est GFR ( Amer) > 60 Est GFR (Non-Af Amer) > 60 Random Glucose 105 Calcium 9.4 Phosphorus 3.0 Magnesium 2.2 Iron TIBC % Saturation Total Bilirubin 0.6 AST 27 ALT 30 Alkaline Phosphatase 87 Lactate Dehydrogenase Troponin I Total Protein 6.6 Albumin 3.7 Globulin 2.9 Albumin/Globulin Ratio 1.3 Blood Type Antibody Screen Crossmatch BBK History Checked 02/26/17 08:30 WBC RBC Hgb Hct MCV MCH MCHC RDW Plt Count MPV Neut % (Auto) Lymph % (Auto) Stewart % (Auto) Eos % (Auto) Baso % (Auto) Neut # Lymph # Stewart # Eos # Baso # Retic Count PT INR APTT Sodium Potassium Chloride Carbon Dioxide Anion Gap BUN Creatinine Est GFR ( Amer) Est GFR (Non-Af Amer) Random Glucose Calcium Phosphorus Magnesium Iron 22 L TIBC 381 % Saturation 6 L Total Bilirubin AST ALT Alkaline Phosphatase Lactate Dehydrogenase Troponin I Total Protein Albumin Globulin Albumin/Globulin Ratio Blood Type Antibody Screen Crossmatch BBK History Checked Critical Care Progress Note - Nutrition Nutrition: Nutrition Category Date Time Status Regular Diet [DIET] Diets 02/26/17 Breakfast Active Attending/Attestation - Attestation I have personally seen and examined this patient.: Yes I have fully participated in the care of the patient.: Yes I have reviewed all pertinent clinical information: Yes Notes (Text): 02/26/17 14:05 Today: Sunday, February 26, 2017 The patient was Seen/interviewed and examined by me at the bedside during ICU round, Medical records reviewed and Management issues were discussed and formulated with the house staff. I have reviewed all the relevant clinical, laboratory, hemodynamic, radiographic data and medications Pain issues, skin care, head of the bed elevation, glycemic control were addressed. I concur with resident's assessment and plan of care as transcribed in Dr. Chaidez note. This morning he feels well and is hemodynamically stable, S/P 2U packed RBC transfusion Denies any chest pain or SOB and the plan is to transfer out of the ICU.
[2017-02-26 10:44] LABS: IRON 22 ug/dL (37-170)
[2017-02-27 06:48] LABS: BASO # 0.1 K/uL (0.0-0.2); BASO % 1.1 % (0.0-2.0); EOS # 0.4 K/uL (0.0-0.7); EOS % 3.9 % (0.0-4.0); HEMATOCRIT 27.2 % (34.0-47.0); LYMPH # 1.7 K/uL (1.0-4.3); LYMPH % 18.2 % (20.0-40.0); MEAN CELL VOLUME 71.9 fl (81.0-99.0); MEAN CORPUSCULAR HEMOGLOBIN 24.5 pg (27.0-31.0); MEAN CORPUSCULAR HGB CONC 34.1 g/dL (33.0-37.0); MEAN PLATELET VOLUME 8.7 fl (7.2-11.7); MONO # 0.7 K/uL (0.0-0.8); MONO % 7.9 % (0.0-10.0); NEUT # 6.4 K/uL (1.8-7.0); NEUT % 68.9 % (50.0-75.0); NRBC % 0.2 % (0.0-0.0); RED CELL DISTRIBUTION WIDTH 29.1 % (11.5-14.5); WHITE BLOOD COUNT 9.3 K/uL (4.8-10.8)
[2017-02-27 07:41] VITALS: BP 121/73; RESP 20; TEMP 98.4
[2017-02-27 07:46] LABS: FSH 6.9 mIU/mL
[2017-02-27] MEDS: Prenatal Multivit/Folic Acid/Iron Tab PO SCH (09:17)
[2017-02-27] MEDS: Metoprolol Succinate 25 mg XL Tab PO SCH (09:17)
[2017-02-27 09:18] VITALS: PULSE 70
--- NOTE | 2017-02-27 11:33 | RAD ---
PROCEDURE: Right Foot Radiographs. HISTORY: H/O fall 4 days ago, R foot pain and swelling COMPARISON: None. FINDINGS: BONES: Bone alignment and mineralization are normal. There is no acute displaced fracture or bone destruction. JOINTS: The joint spaces are preserved. SOFT TISSUES: There is severe dorsal soft tissue swelling in the midfoot. There is an apparent 2 mm calcific density in the dorsal soft tissues. OTHER FINDINGS: None. IMPRESSION: No acute fracture or dislocation. Severe dorsal soft tissue swelling. Apparent 2 mm calcific density in the dorsal soft tissues of the midfoot could represent artifact or foreign body.
--- NOTE | 2017-02-27 11:54 | CP.PCM.DIS ---
Provider - Provider Date of Admission: 02/25/17 17:45 Attending physician: Deborah Dillon MD Time Spent in preparation of Discharge (in minutes): 30 Diagnosis - Discharge Diagnosis (1) Anemia Status: Acute (2) DUB (dysfunctional uterine bleeding) Status: Acute Hospital Course - Lab Results Lab Results: Most Recent Lab Values WBC 9.3 K/uL (4.8-10.8) 02/27/17 05:20 RBC 3.78 Mil/uL (3.80-5.20) L 02/27/17 05:20 Hgb 9.3 g/dL (12.0-16.0) L D 02/27/17 05:20 Hct 27.2 % (34.0-47.0) L 02/27/17 05:20 MCV 71.9 fl (81.0-99.0) L D 02/27/17 05:20 MCH 24.5 pg (27.0-31.0) L 02/27/17 05:20 MCHC 34.1 g/dL (33.0-37.0) 02/27/17 05:20 RDW 29.1 % (11.5-14.5) H 02/27/17 05:20 Plt Count 228 K/uL (130-400) 02/27/17 05:20 MPV 8.7 fl (7.2-11.7) 02/27/17 05:20 Neut % (Auto) 68.9 % (50.0-75.0) 02/27/17 05:20 Lymph % (Auto) 18.2 % (20.0-40.0) L 02/27/17 05:20 Bath % (Auto) 7.9 % (0.0-10.0) 02/27/17 05:20 Eos % (Auto) 3.9 % (0.0-4.0) 02/27/17 05:20 Baso % (Auto) 1.1 % (0.0-2.0) 02/27/17 05:20 Neut # 6.4 K/uL (1.8-7.0) 02/27/17 05:20 Lymph # 1.7 K/uL (1.0-4.3) 02/27/17 05:20 Bath # 0.7 K/uL (0.0-0.8) 02/27/17 05:20 Eos # 0.4 K/uL (0.0-0.7) 02/27/17 05:20 Baso # 0.1 K/uL (0.0-0.2) 02/27/17 05:20 Retic Count 4.3 % (0.5-1.5) H D 02/25/17 22:40 Haptoglobin 167 mg/dL (43-212) 02/25/17 20:58 PT 12.4 Seconds (9.8-13.1) 02/25/17 17:17 INR 1.1 (0.9-1.2) 02/25/17 17:17 APTT 22.6 Seconds (25.6-37.1) L 02/25/17 17:17 Sodium 139 mmol/l (132-148) 02/26/17 04:20 Potassium 4.3 MMOL/L (3.6-5.0) 02/26/17 04:20 Chloride 109 mmol/L (98-107) H 02/26/17 04:20 Carbon Dioxide 23 mmol/L (22-30) 02/26/17 04:20 Anion Gap 11 (10-20) 02/26/17 04:20 BUN 11 mg/dl (7-17) 02/26/17 04:20 Creatinine 0.7 mg/dL (0.7-1.2) 02/26/17 04:20 Est GFR ( Amer) > 60 02/26/17 04:20 Est GFR (Non-Af Amer) > 60 02/26/17 04:20 Random Glucose 105 mg/dL (65-105) 02/26/17 04:20 Calcium 9.4 mg/dL (8.4-10.2) 02/26/17 04:20 Phosphorus 3.0 mg/dl (2.5-4.5) 02/26/17 04:20 Magnesium 2.2 MG/DL (1.6-2.3) 02/26/17 04:20 Iron 22 ug/dL (37-170) L 02/26/17 08:30 TIBC 381 ug/dL (250-450) 02/26/17 08:30 % Saturation 6 % (20-55) L 02/26/17 08:30 Total Bilirubin 0.6 mg/dl (0.2-1.3) 02/26/17 04:20 AST 27 U/L (14-36) 02/26/17 04:20 ALT 30 U/L (9-52) 02/26/17 04:20 Alkaline Phosphatase 87 U/L (38-126) 02/26/17 04:20 Lactate Dehydrogenase 302 U/L (313-618) L 02/25/17 20:58 Troponin I < 0.0120 ng/mL (0.00-0.120) 02/25/17 17:06 Total Protein 6.6 G/DL (6.3-8.2) 02/26/17 04:20 Albumin 3.7 g/dL (3.5-5.0) 02/26/17 04:20 Globulin 2.9 gm/dL (2.2-3.9) 02/26/17 04:20 Albumin/Globulin Ratio 1.3 (1.0-2.1) 02/26/17 04:20 FSH 3rd Generation 6.9 mIU/mL 02/27/17 05:20 Luteinizing Hormone 4.6 mIU/ml 02/27/17 05:20 Blood Type O POSITIVE 02/25/17 17:06 Antibody Screen Negative 02/25/17 17:06 Crossmatch See Detail 02/25/17 17:06 BBK History Checked Patient has bt 02/25/17 17:06 - Hospital Course Hospital Course: 51 yo F with PMHx HTN and chronic anemia admitted for symptomatic anemia ( Hgb 4.6 on admission) secondary to heavy menstrual bleeding after Provera withdrawal. Patient transfused with leuk-reduced RBC 4 units, also venofer 200 mg x1. Bleeding probably secondary to endometrial thickening noted on previous US. Patient evaluated for OBGYN and outpatient followup recommended for endometrial biopsy. Also reports mild pain and swelling in R foot due to a fall 4 days ago, foot x ray negative for fracture. Improved condition at discharge ( Hgb 9.3) patient discharged home safely with followup instructions/ visits on with Dr Hall at [facility]. Home medications: Lisinopril 10mg PO daily. Ferrous sulfate 325 mg PO BID. Discharge Exam - Head Exam Head Exam: NORMAL INSPECTION - Neck Exam Neck exam: Normal Inspection - Respiratory Exam Respiratory Exam: Clear to PA & Lateral. absent: Rales, Rhonchi, Wheezes - Cardiovascular Exam Cardiovascular Exam: REGULAR RHYTHM, +S1, +S2 - GI/Abdominal Exam GI & Abdominal Exam: Normal Bowel Sounds, Soft. absent: Tenderness - Neurological Exam Neurological exam: Alert, CN II-XII Intact, Oriented x3 - Skin Skin Exam: Dry, Intact, Warm Discharge Plan - Follow Up Plan Condition: FAIR Disposition: HOME/ ROUTINE Instructions: Dysfunctional Uterine Bleeding (DC), Anemia (DC) Additional Instructions: Follow up with PMD in 2-3 days. ER precaution given appointment with dr hall at [facility] on 03/19/17 Referrals: Jennifer Hall MD [Staff Provider] -
== END 2017-02-27 15:03 | disposition home or self-care (01) | DRG 395 ==
LOC: H.ER 16:21 → H.ERHOLD 17:45 → H.ICU/CCU 18:42 → H.MEDSURG1 02-26 16:45
PROVIDERS: ADMIT Family Medicine Geriatric Medicine; ATTEND Family Medicine Geriatric Medicine
PROC: 30233N1 Transfusion of Nonautologous Red Blood Cells into Peripheral Vein, Percutaneous Approach (ICD-10-PCS; principal; 2017-02-25)
DX: D50.0 Iron deficiency anemia secondary to blood loss (chronic) (principal); I10 Essential (primary) hypertension; N93.9 Abnormal uterine and vaginal bleeding, unspecified; M79.671 Pain in right foot; T38.5X5A Adverse effect of other estrogens and progestogens, initial encounter; N92.0 Excessive and frequent menstruation with regular cycle; N83.292 Other ovarian cyst, left side; H54.40 Blindness, one eye, unspecified eye

== ENCOUNTER 2017-05-15 09:31 | Emergency (ER) | payer SELFPAY ==
[2017-05-15 09:32] VITALS: BMI 31.6
[2017-05-15 09:39] VITALS: O2SAT 100
[2017-05-15] MEDS ORDERED: Sodium Chloride 0.9% 1,000 ML IV STA (10:32)
--- NOTE | 2017-05-15 10:55 | ED PDOC ---
Syncope/Near Syncope/Dizziness Time Seen by Provider: 05/15/17 10:15 Chief Complaint (Nursing): Dizziness/Lightheaded Chief Complaint (Provider): Dizziness History Per: Patient History/Exam Limitations: no limitations Onset/Duration Of Symptoms: Days Current Symptoms Are (Timing): Still Present Activity At Onset Of Symptoms: Sitting, Standing Seizure Or Post-ictal Symptoms: None Additional Complaint(s): 52 yo female with history of HTN and anemia presents with dizziness for a few days. Pt states last time she felt similar symptoms she was anemic. Pt states she was seen by [facility] for heavy vaginal bleeding and put on provera. Pt states this has not helped and the symptoms began after starting the medication. Pt states today was worse and she felt so dizzy she fell but did without LOC or injury. Past Medical History Reviewed: Historical Data, Nursing Documentation, Vital Signs Vital Signs: Last Vital Signs Temp 98.3 F 05/15/17 09:48 Pulse 108 H 05/15/17 09:48 Resp 22 05/15/17 09:48 BP 173/98 H 05/15/17 09:48 Pulse Ox 100 05/15/17 09:48 - Medical History PMH: Anemia, HTN Denies: Chronic Kidney Disease - Surgical History Surgical History: - Family History Family History: States: Unknown Family Hx - Living Arrangements Living Arrangements: With Family - Social History Current smoker - smoking cessation education provided: No - Immunization History Hx Influenza Vaccination: Yes (not up to date) - Home Medications Home Medications: Ambulatory Orders Medication Instructions Recorded Multivit/Folic Acid/I 1 tab PO DAILY tab 02/27/17 [] Meclizine [Meclizine*] 25 mg PO Q6 PRN #30 tab 05/15/17 - Allergies Allergies/Adverse Reactions: Allergies Allergy/AdvReac Type Severity Reaction Status Date / Time No Known Allergies Allergy Verified 05/15/17 09:48 Review of Systems ROS Statement: Except As Marked, All Systems Reviewed And Found Negative Constitutional: Negative for: Fever, Chills Neurological: Positive for: Weakness, Dizziness Physical Exam - Reviewed Nursing Documentation Reviewed: Yes Vital Signs Reviewed: Yes - Physical Exam Appears: Positive for: Well, Non-toxic, No Acute Distress Head Exam: Positive for: ATRAUMATIC, NORMAL INSPECTION, NORMOCEPHALIC Skin: Positive for: Normal Color, Warm, DRY Eye Exam: Positive for: Normal appearance ENT: Positive for: Normal ENT Inspection Neck: Positive for: Normal, Painless ROM Cardiovascular/Chest: Positive for: Regular Rate, Rhythm Respiratory: Positive for: Normal Breath Sounds. Negative for: Accessory Muscle Use, Respiratory Distress Pulses-Radial (L): 2+ Pulses-Radial (R): 2+ Gastrointestinal/Abdominal: Positive for: Normal Exam, Bowel Sounds, Soft Back: Positive for: Normal Inspection Extremity: Positive for: Normal ROM Neurologic/Psych: Positive for: Alert, Oriented - Laboratory Results Result Diagrams: 05/15/17 11:14 05/15/17 11:14 - ECG O2 Sat by Pulse Oximetry: 100 Medical Decision Making Medical Decision Making: Pt reports feeling better on re-evaluation. Disposition - Clinical Impression Clinical Impression: Dizziness - Patient ED Disposition Is Patient to be Admitted: No Counseled Patient/Family Regarding: Diagnosis, Need For Followup, Rx Given - Disposition Disposition: Routine/Home Disposition Time: 13:45 Condition: GOOD Prescriptions: Meclizine [Meclizine*] 25 mg PO Q6 PRN #30 tab PRN Reason: Dizziness Instructions: Vertigo (ED) Forms: [facility] (Turkish) Print Language: NICARAGUAN
[2017-05-15 11:18] LABS: BASO # 0.1 K/uL (0.0-0.2); BASO % 0.7 % (0.0-2.0); EOS # 0.1 K/uL (0.0-0.7); EOS % 0.5 % (0.0-4.0); HEMOGLOBIN 11.3 g/dL (12.0-16.0); LYMPH # 1.3 K/uL (1.0-4.3); LYMPH % 11.4 % (20.0-40.0); MEAN CELL VOLUME 86.7 fl (81.0-99.0); MEAN CORPUSCULAR HEMOGLOBIN 28.7 pg (27.0-31.0); MEAN PLATELET VOLUME 8.6 fl (7.2-11.7); MONO # 0.6 K/uL (0.0-0.8); MONO % 5.3 % (0.0-10.0); NEUT # 9.1 K/uL (1.8-7.0); NEUT % 82.1 % (50.0-75.0); NRBC % 0.1 % (0.0-0.0); RBC 3.94 Mil/uL (3.80-5.20); RED CELL DISTRIBUTION WIDTH 15.4 % (11.5-14.5); WHITE BLOOD COUNT 11.1 K/uL (4.8-10.8)
[2017-05-15 11:31] LABS: ALBUMIN 4.6 g/dL (3.5-5.0); ALT/SGPT 44 U/L (9-52); AST/SGOT 23 U/L (14-36); BLOOD UREA NITROGEN 9 mg/dl (7-17); GFR AFRICAN-AMERICAN > 60; GFR NON-AFRICAN AMERICAN > 60
[2017-05-15 11:32] LABS: ALB/GLOB RATIO 1.3 (1.0-2.1)
[2017-05-15 14:16] VITALS: BP 153/86; PULSE 92; RESP 16; TEMP 98.2
--- NOTE | 2017-05-15 16:14 | CARD ---
APPROVED REPORT EKG Measurement Heart [id number] <Conclusion> Normal sinus rhythm Right atrial enlargement Nonspecific ST abnormality Abnormal ECG
== END 2017-05-15 14:18 | disposition home or self-care (01) ==
LOC: H.ER 09:31
DX: R42 Dizziness and giddiness (principal); I11.9 Hypertensive heart disease without heart failure; I51.7 Cardiomegaly
CPT/HCPCS: 80053; 84443; 84484; 85025; 86850; 86900; 93005; 99285; J7040

== ENCOUNTER 2017-08-07 13:47 | Observation (INO) | payer SELFPAY ==
[2017-08-07 13:47] VITALS: BMI 31.6
--- NOTE | 2017-08-07 15:09 | ED PDOC ---
HPI: General Adult Time Seen by Provider: 08/07/17 14:25 Chief Complaint (Nursing): Abnormal Labs Chief Complaint (Provider): Anemia History Per: Patient History/Exam Limitations: no limitations Onset/Duration Of Symptoms: Days (x7) Have you had recent travel within the past 21 days to any of the following countries: [place], [place], [place] or [place]?: No Current Symptoms Are (Timing): Still Present Additional Complaint(s): 52 y/o female with a history of anemia presents to the ED with anemia. Patient was seen at the out patient clinic which informed her that she was severely anemic but doesn't know the exact results. Over the past week she has felt light headed and feels tired when she exerts herself. She is currently spotting vaginally and received two transfusions in the past. Denies bleeding elsewhere, SOB, or CP. Of note, patient suffered from sever vaginal bleeding last about a month ago due to anemia but has corrected it using control. PMD: Dr Ayala Past Medical History Reviewed: Historical Data, Nursing Documentation, Vital Signs Vital Signs: Last Vital Signs Temp 98.5 F 08/07/17 14:13 Pulse 118 H 08/07/17 14:13 Resp 16 08/07/17 14:13 BP 171/83 H 08/07/17 14:13 Pulse Ox 100 08/07/17 15:19 - Medical History PMH: Anemia, HTN Denies: Chronic Kidney Disease - Surgical History Surgical History: - Family History Family History: States: Unknown Family Hx - Social History Current smoker - smoking cessation education provided: No Ex-Smoker (has not smoked in the last 12 months): No Alcohol: None Drugs: Denies - Immunization History Hx Influenza Vaccination: Yes (not up to date) - Home Medications Home Medications: Ambulatory Orders Medication Instructions Recorded Ferrous Sulfate [Feosol] 325 mg PO BID 08/07/17 Lisinopril [Zestril] 10 mg PO DAILY 08/07/17 Norethindrone [Roseann] 0.35 mg PO DAILY 08/07/17 - Allergies Allergies/Adverse Reactions: Allergies Allergy/AdvReac Type Severity Reaction Status Date / Time No Known Allergies Allergy Verified 08/07/17 14:13 Review of Systems ROS Statement: Except As Marked, All Systems Reviewed And Found Negative (and as per HPI) Constitutional: Positive for: Other (tired upon exertion) Cardiovascular: Positive for: Light Headedness (x7 days). Negative for: Chest Pain Respiratory: Negative for: Shortness of Breath Genitourinary Female: Positive for: Vaginal Bleeding (slight spotting currentlly ) Physical Exam - Reviewed Nursing Documentation Reviewed: Yes Vital Signs Reviewed: Yes - Physical Exam Appears: Positive for: Non-toxic, No Acute Distress Head Exam: Positive for: ATRAUMATIC, NORMAL INSPECTION, NORMOCEPHALIC Skin: Positive for: Warm, Dry, Pallor Eye Exam: Positive for: EOMI, PERRL ENT: Negative for: Pharyngeal Erythema, Tonsillar Exudate Neck: Positive for: Painless ROM, Supple Cardiovascular/Chest: Positive for: Tachycardia. Negative for: Murmur Respiratory: Positive for: Normal Breath Sounds. Negative for: Wheezing Gastrointestinal/Abdominal: Positive for: Soft. Negative for: Tenderness, Mass , Distended, Guarding Back: Positive for: Normal Inspection. Negative for: Decreased ROM Extremity: Positive for: Normal ROM. Negative for: Deformity Lymphatic: Negative for: Adenopathy Neurologic/Psych: Positive for: Alert. Negative for: Motor/Sensory Deficits - Laboratory Results Result Diagrams: 08/07/17 15:39 08/07/17 15:39 - ECG ECG Rhythm: Positive for: Normal ST Segment, Sinus Rhythm, Nonspecific Changes O2 Sat by Pulse Oximetry: 100 (RA) Pulse Ox Interpretation: Normal - Radiology X-Ray: Interpreted by Ar X-Ray Interpretation: No Acute Disease Medical Decision Making Medical Decision Making: Time: 14:13 Impression: Anemia Initial Plan: * Blood Type an Screen * CMP * UDip * CBC Pt has severe anemia at 6.9. Consent for transfusion obtained after discussion of risks/benefits. ANJELICA Bustamante FP resident for hospitalization. Scribe Attestation: Documented by Ivone Hollins acting as a jung Selby MD. MD Do Attestation: All medical record entries made by the Jung were at my direction and personally dictated by me. I have reviewed the chart and agree that the record accurately reflects my personal performance of the history, physical exam, medical decision making, and the department course for this patient. I have also personally directed, reviewed, and agree with the discharge instructions and disposition. Disposition - Clinical Impression Clinical Impression: Symptomatic anemia, Uncontrolled hypertension Counseled Patient/Family Regarding: Studies Performed, Diagnosis - Disposition Disposition Time: 16:00 Condition: GUARDED - Pt Status Changed To: Hospital Disposition Of: Observation - POA Present On Arrival: None
[2017-08-07 15:56] LABS: BASO # 0.1 K/uL (0.0-0.2); BASO % 1.1 % (0.0-2.0); EOS % 0.4 % (0.0-4.0); HEMOGLOBIN 6.9 g/dL (12.0-16.0); LYMPH # 2.2 K/uL (1.0-4.3); LYMPH % 22.3 % (20.0-40.0); MEAN CELL VOLUME 67.8 fl (81.0-99.0); MEAN CORPUSCULAR HEMOGLOBIN 19.8 pg (27.0-31.0); MEAN CORPUSCULAR HGB CONC 29.2 g/dL (33.0-37.0); MEAN PLATELET VOLUME 8.8 fl (7.2-11.7); MONO # 0.5 K/uL (0.0-0.8); MONO % 4.7 % (0.0-10.0); NEUT # 7.2 K/uL (1.8-7.0); NEUT % 71.5 % (50.0-75.0); PLATELET COUNT 304 K/uL (130-400); RBC 3.49 Mil/uL (3.80-5.20); RED CELL DISTRIBUTION WIDTH 22.8 % (11.5-14.5)
[2017-08-07 16:05] LABS: PARTIAL THROMBOPLASTIN TIME 27.2 Seconds (25.6-37.1)
[2017-08-07 16:14] LABS: ALB/GLOB RATIO 1.2 (1.0-2.1); ALBUMIN 4.5 g/dL (3.5-5.0); ALT/SGPT 41 U/L (9-52); AST/SGOT 30 U/L (14-36); BLOOD UREA NITROGEN 14 mg/dl (7-17); CALCIUM 10.6 mg/dL (8.4-10.2); GFR AFRICAN-AMERICAN > 60; GFR NON-AFRICAN AMERICAN > 60
--- NOTE | 2017-08-07 18:43 | CP.PCM.HP ---
History of Present Illness - History of Present Illness History of Present Illness: 52 y/o female with PMHx HTN, Menorrhagia with irregular cycle, and anemia presents to ED sent by PMD because severe anemia. Patient states she has had intermittent lightheadedness for the last 2-3 weeks, but denies any h/o of near syncope or syncope. LMP started on 07/29/17, first 2-3 days she was changed approximately 10 soaked pads daily, then decreased to 6-7 pads daily, and now she has just vaginal spotting. She was placed recently in OCP lupe for abnormal uterine bleeding control. Before she reports her menses were lasting for 3 weeks. Denies cp, SOB, N/V, abdominal or pelvic pain. Had 2 blood transfusion in the past for similar anemia. PMD: [facility] Full code Allerg: NKDA Meds:as per records FHx: Father: /had HTN, Mother:/had HTN SHx: 1 Social: Never smoker, etoh social, denies illicit drugs [employer]: LMP: 07/29/17, now having vaginal spotting ER course: VS: remarkable for tachy: 118, BP: 171/83 PE: pallor, rest of PE unremarkable Labs:CBC: H/H: 6.9/23.7, coag normal, CMP: unremarkable Tx: transfuse 2 units of PRBC as per ER provider Present on Admission - Present on Admission Any Indicators Present on Admission: No History of DVT/PE: No History of Uncontrolled Diabetes: No Urinary Catheter: No Decubitus Ulcer Present: No Review of Systems - Review of Systems All systems: reviewed and no additional remarkable complaints except (as per HPI ) Past Patient History - Infectious Disease Hx of Infectious Diseases: None - Tetanus Immunizations Tetanus Immunization: Unknown - Past Medical History & Family History Past Medical History?: No - Past Social History Alcohol: None Drugs: Denies - CARDIAC Hx Hypertension: Yes - PULMONARY Hx Respiratory Disorders: No - NEUROLOGICAL Hx Neurological Disorder: No - HEENT Other/Comment: BLIND LEFT EYE. 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) - GASTROINTESTINAL Hx Gastrointestinal Disorders: No - GENITOURINARY/GYNECOLOGICAL Hx Genitourinary Disorders: Yes (Vaginal Bleeding) - PSYCHIATRIC Hx Psychophysiologic Disorder: No Hx Substance Use: No - SURGICAL HISTORY Hx Section: Yes - ANESTHESIA Hx Anesthesia: Yes Hx Anesthesia Reactions: No Hx Malignant Hyperthermia: No Meds Allergies/Adverse Reactions: Allergies Allergy/AdvReac Type Severity Reaction Status Date / Time No Known Allergies Allergy Verified 08/07/17 14:13 Physical Exam - Constitutional Appears: Non-toxic, No Acute Distress - ENT Exam ENT Exam: Mucous Membranes Moist - Respiratory Exam Respiratory Exam: Clear to Auscultation Bilateral, NORMAL BREATHING PATTERN. absent: Rales, Rhonchi, Wheezes, Respiratory Distress, Stridor - Cardiovascular Exam Cardiovascular Exam: Tachycardia, REGULAR RHYTHM, +S1, +S2 - GI/Abdominal Exam GI & Abdominal Exam: Normal Bowel Sounds, Soft. absent: Guarding, Rebound, Rigid, Tenderness - Extremities Exam Extremities exam: Positive for: normal inspection. Negative for: calf tenderness, pedal edema - Neurological Exam Neurological exam: Alert, Oriented x3 - Psychiatric Exam Psychiatric exam: Normal Affect, Normal Mood - Skin Skin Exam: Dry, Intact, Normal Color Results - Vital Signs Recent Vital Signs: Last Vital Signs Temp 98.2 F 08/07/17 18:29 Pulse 88 08/07/17 18:29 Resp 20 08/07/17 18:29 BP 160/91 H 08/07/17 18:29 Pulse Ox 100 08/07/17 18:29 - Labs Result Diagrams: 08/07/17 15:39 08/07/17 15:39 Labs: Laboratory Results - last 24 hr 08/07/17 08/07/17 08/07/17 15:13 15:30 15:39 WBC 10.0 RBC 3.49 L Hgb 6.9 L Hct 23.7 L MCV 67.8 L D MCH 19.8 L MCHC 29.2 L RDW 22.8 H Plt Count 304 MPV 8.8 Neut % (Auto) 71.5 Lymph % (Auto) 22.3 [place] % (Auto) 4.7 Eos % (Auto) 0.4 Baso % (Auto) 1.1 Neut # (Auto) 7.2 H Lymph # (Auto) 2.2 [place] # (Auto) 0.5 Eos # (Auto) 0.0 Baso # (Auto) 0.1 Retic Count 2.8 H D PT INR APTT Sodium Potassium Chloride Carbon Dioxide Anion Gap BUN Creatinine Est GFR ( Amer) Est GFR (Non-Af Amer) Random Glucose Calcium Total Bilirubin AST ALT Alkaline Phosphatase Total Protein Albumin Globulin Albumin/Globulin Ratio Blood Type O POSITIVE Antibody Screen Negative BBK History Checked Patient has bt 08/07/17 08/07/17 15:39 15:39 WBC RBC Hgb Hct MCV MCH MCHC RDW Plt Count MPV Neut % (Auto) Lymph % (Auto) [place] % (Auto) Eos % (Auto) Baso % (Auto) Neut # (Auto) Lymph # (Auto) [place] # (Auto) Eos # (Auto) Baso # (Auto) Retic Count PT 11.0 INR 1.0 APTT 27.2 Sodium 146 Potassium 4.4 Chloride 107 Carbon Dioxide 22 Anion Gap 21 H BUN 14 Creatinine 0.7 Est GFR ( Amer) > 60 Est GFR (Non-Af Amer) > 60 Random Glucose 105 Calcium 10.6 H Total Bilirubin 0.3 AST 30 ALT 41 Alkaline Phosphatase 98 Total Protein 8.3 H Albumin 4.5 Globulin 3.8 Albumin/Globulin Ratio 1.2 Blood Type Antibody Screen BBK History Checked Assessment & Plan - Assessment and Plan (Free Text) Assessment: 52 y/o female with PMHx HTN, Menorrhagia with irregular cycle, and anemia admitted with symptomatic anemia and receive transfusion of PRBC. Plan: Microcytic Anemia -Telemetry -Acute on chronic -most likely 2/2 Menorrhagia with irregular cycle -lightheadedness, tachy on admission -give 2 units of PRBC -check CBC after transfusion -coag panel WNL -f/u Iron studies Menorrhagia - with irregular cycle -c/w Lupe as per [employer]ICAL LEAD recommendation -scheduled for endometrial ablation by Dr. Moncada Vitamin B 12 deficiency -replace Vit B12 -Give 1000 mcg once IM -consider DC on PO Vit B 12 DVT prophylaxis SCDs - Date & Time Date: 08/07/17 Time: 18:40
[2017-08-07 18:59] LABS: IRON 23 ug/dL (37-170)
[2017-08-07 19:12] LABS: BANDS 2 % (0-2); LYMPHOCYTE 19 % (20-50); MONOCYTE 6 % (0-10); NEUTROPHIL 73 % (42-75); PLATELET ESTIMATE NORMAL (NORMAL); TOTAL CELLS COUNTED 100
[2017-08-07 19:13] LABS: ANISOCYTOSIS MODERATE; HYPOCHROMIC MODERATE; MICROCYTOSIS MODERATE; PLATELET CLUMPS PRESENT; POIKILOCYTOSIS MODERATE; POLYCHROMIC SLIGHT; SCHISTOCYTES SLIGHT; TARGET CELLS SLIGHT; TEARDROP CELLS SLIGHT
--- NOTE | 2017-08-07 19:23 | RAD ---
HISTORY: severe anemia COMPARISON: Chest radiographs 07/25/2017. FINDINGS: LUNGS: History volume appears diminished in the interval. No definitive infiltrate pleural effusion or pneumothorax identified this time. PLEURA: As above. CARDIOVASCULAR: Stable cardiomediastinal silhouette. OSSEOUS STRUCTURES: No significant abnormalities. VISUALIZED UPPER ABDOMEN: Normal. OTHER FINDINGS: None. IMPRESSION: No acute infiltrate bilaterally or pleural effusion. No pulmonary vascular derangement.
[2017-08-07 19:26] LABS: % IRON SATURATION 5 % (20-55); TOTAL IRON BINDING CAPACITY 457 ug/dL (250-450)
[2017-08-07 20:25] LABS: FERRITIN 2.9 ng/Ml (11.1-264.0)
[2017-08-08 07:54] VITALS: RESP 20
[2017-08-08] MEDS ORDERED: NORETHINDRONE 0.35 MG PO SCH (09:00)
--- NOTE | 2017-08-08 10:39 | CARD ---
APPROVED REPORT EKG Measurement Heart [id number] <Conclusion> Normal sinus rhythm Nonspecific ST abnormality Abnormal ECG
[2017-08-08 10:49] LABS: HEMOGLOBIN 9.4 g/dL (12.0-16.0); MEAN CELL VOLUME 72.6 fl (81.0-99.0); MEAN CORPUSCULAR HEMOGLOBIN 22.2 pg (27.0-31.0); MEAN CORPUSCULAR HGB CONC 30.6 g/dL (33.0-37.0); RBC 4.25 Mil/uL (3.80-5.20); WHITE BLOOD COUNT 6.1 K/uL (4.8-10.8)
--- NOTE | 2017-08-08 11:41 | CP.PCM.DIS ---
Provider - Provider Date of Admission: 08/07/17 16:14 Attending physician: Deborah Dillon MD Time Spent in preparation of Discharge (in minutes): 30 Diagnosis - Discharge Diagnosis (1) Symptomatic anemia Status: Acute Priority: High (2) DUB (dysfunctional uterine bleeding) Status: Chronic Hospital Course - Lab Results Lab Results: Most Recent Lab Values WBC 6.1 K/uL (4.8-10.8) 08/08/17 10:00 RBC 4.25 Mil/uL (3.80-5.20) 08/08/17 10:00 Hgb 9.4 g/dL (12.0-16.0) L D 08/08/17 10:00 Hct 30.9 % (34.0-47.0) L 08/08/17 10:00 MCV 72.6 fl (81.0-99.0) L D 08/08/17 10:00 MCH 22.2 pg (27.0-31.0) L 08/08/17 10:00 MCHC 30.6 g/dL (33.0-37.0) L 08/08/17 10:00 RDW 25.0 % (11.5-14.5) H 08/08/17 10:00 Plt Count 315 K/uL (130-400) 08/08/17 10:00 MPV 8.8 fl (7.2-11.7) 08/07/17 15:39 Neut % (Auto) 71.5 % (50.0-75.0) 08/07/17 15:39 Lymph % (Auto) 22.3 % (20.0-40.0) 08/07/17 15:39 Cedar % (Auto) 4.7 % (0.0-10.0) 08/07/17 15:39 Eos % (Auto) 0.4 % (0.0-4.0) 08/07/17 15:39 Baso % (Auto) 1.1 % (0.0-2.0) 08/07/17 15:39 Neut # (Auto) 7.2 K/uL (1.8-7.0) H 08/07/17 15:39 Lymph # (Auto) 2.2 K/uL (1.0-4.3) 08/07/17 15:39 Cedar # (Auto) 0.5 K/uL (0.0-0.8) 08/07/17 15:39 Eos # (Auto) 0.0 K/uL (0.0-0.7) 08/07/17 15:39 Baso # (Auto) 0.1 K/uL (0.0-0.2) 08/07/17 15:39 Neutrophils % (Manual) 73 % (42-75) 08/07/17 15:39 Band Neutrophils % 2 % (0-2) 08/07/17 15:39 Lymphocytes % (Manual) 19 % (20-50) L 08/07/17 15:39 Monocytes % (Manual) 6 % (0-10) 08/07/17 15:39 Platelet Estimate Normal (NORMAL) 08/07/17 15:39 Plt Clumps, EDTA Present 08/07/17 15:39 Polychromasia Slight 08/07/17 15:39 Hypochromasia (manual) Moderate 08/07/17 15:39 Poikilocytosis (manual Moderate 08/07/17 15:39 Anisocytosis (manual) Moderate 08/07/17 15:39 Microcytosis (manual) Moderate 08/07/17 15:39 Target Cells Slight 08/07/17 15:39 Tear Drop Cells Slight 08/07/17 15:39 Schistocytes Slight 08/07/17 15:39 Retic Count 2.8 % (0.5-1.5) H D 08/07/17 15:13 PT 11.0 Seconds (9.8-13.1) 08/07/17 15:39 INR 1.0 (0.9-1.2) 08/07/17 15:39 APTT 27.2 Seconds (25.6-37.1) 08/07/17 15:39 Sodium 146 mmol/l (132-148) 08/07/17 15:39 Potassium 4.4 MMOL/L (3.6-5.0) 08/07/17 15:39 Chloride 107 mmol/L (98-107) 08/07/17 15:39 Carbon Dioxide 22 mmol/L (22-30) 08/07/17 15:39 Anion Gap 21 (10-20) H 08/07/17 15:39 BUN 14 mg/dl (7-17) 08/07/17 15:39 Creatinine 0.7 mg/dl (0.7-1.2) 08/07/17 15:39 Est GFR ( Amer) > 60 08/07/17 15:39 Est GFR (Non-Af Amer) > 60 08/07/17 15:39 Random Glucose 105 mg/dL (65-105) 08/07/17 15:39 Calcium 10.6 mg/dL (8.4-10.2) H 08/07/17 15:39 Iron 23 ug/dL (37-170) L 08/07/17 18:47 TIBC 457 ug/dL (250-450) H 08/07/17 18:47 % Saturation 5 % (20-55) L 08/07/17 18:47 Ferritin 2.9 ng/Ml (11.1-264.0) L 08/07/17 18:47 Total Bilirubin 0.3 mg/dl (0.2-1.3) 08/07/17 15:39 AST 30 U/L (14-36) 08/07/17 15:39 ALT 41 U/L (9-52) 08/07/17 15:39 Alkaline Phosphatase 98 U/L (38-126) 08/07/17 15:39 Total Protein 8.3 G/DL (6.3-8.2) H 08/07/17 15:39 Albumin 4.5 g/dL (3.5-5.0) 08/07/17 15:39 Globulin 3.8 gm/dL (2.2-3.9) 08/07/17 15:39 Albumin/Globulin Ratio 1.2 (1.0-2.1) 08/07/17 15:39 Vitamin B12 214 pg/mL (239-931) L 08/07/17 18:47 Blood Type O POSITIVE 08/07/17 15:30 Antibody Screen Negative 08/07/17 15:30 Crossmatch See Detail 08/07/17 15:30 BBK History Checked Patient has bt 08/07/17 15:30 - Hospital Course Hospital Course: 52 y/o female with PMHx HTN, Menorrhagia with irregular cycle, and anemia admitted because anemia associated with intermittent lightheadedness for the last 2-3 weeks. Initial labs showed H/H 6.9/23.7 and tachycardia noted at PE. Patient received 2 units of PRBC during stay. Condition improved, patient was discharged home stable. H/H 9.4/30.9. Patient has appt with PMD on 08/15 at 4:00 pm and she is scheduled for endometrial ablation by Dr. Moncada on 08/12. Recommended c/w Feosol PO daily. Discharge Exam - Head Exam Head Exam: ATRAUMATIC, NORMAL INSPECTION, NORMOCEPHALIC - Eye Exam Eye Exam: EOMI, PERRL - Respiratory Exam Respiratory Exam: Clear to PA & Lateral, NORMAL BREATHING PATTERN. absent: Wheezes - Cardiovascular Exam Cardiovascular Exam: REGULAR RHYTHM, +S1, +S2. absent: Tachycardia - GI/Abdominal Exam GI & Abdominal Exam: Normal Bowel Sounds, Soft. absent: Distended, Tenderness - Neurological Exam Neurological exam: Alert, CN II-XII Intact, Oriented x3 - Psychiatric Exam Psychiatric exam: Normal Mood - Skin Skin Exam: Dry, Intact, Warm Discharge Plan - Follow Up Plan Condition: STABLE Disposition: HOME/ ROUTINE Patient education suggested?: Yes Instructions: Good Food Sources of Iron, Anemia Caused by Low Iron, Adult (DC) , Anemia of Chronic Disease (DC) Additional Instructions: F/u with PMD Dr Miller on 08/20/17 at 4 pm [address] [facility] F/u with primary [employer]ER[employer] Dr Samuel next week appt scheduled per patient. c/w iron PO daily Referrals: [facility] [place] [Outside]
[2017-08-08 12:27] VITALS: BP 142/86; PULSE 71; TEMP 97.9; O2SAT 99
== END 2017-08-08 15:00 | disposition home or self-care (01) ==
LOC: H.ER 13:47 → H.ERHOLD 16:14 → H.TEL 18:10
PROVIDERS: ADMIT Family Medicine Geriatric Medicine; ATTEND Family Medicine Geriatric Medicine
DX: D50.8 Other iron deficiency anemias (principal); N93.8 Other specified abnormal uterine and vaginal bleeding; E53.8 Deficiency of other specified B group vitamins; I10 Essential (primary) hypertension; H54.62 Unqualified visual loss, left eye, normal vision right eye
CPT/HCPCS: 36415; 36430; 71045; 80053; 82607; 82728; 83540; 83550; 85025; 85027; 85044; 85610; 85730; 86850; 86900; 86920; 93005; 99285; G0378; J1756; J3420; P9051